=== PATIENT | female | born 1930 | race Caucasian/White ===

== ENCOUNTER 2016-12-28 06:09 | Emergency (ER) | payer MEDICARE, MEDICAID ==
--- NOTE | 2016-12-28 06:58 | EDM.PDOC ---
ED HPI GENERAL MEDICAL PROBLEM - General Chief Complaint: Gastrointestinal Problem Stated Complaint: BLOODY STOOLS Time Seen by Provider: 12/28/16 06:48 Source of Information: Reports: Patient, Old Records History Limitations: Reports: No Limitations - History of Present Illness INITIAL COMMENTS - FREE TEXT/NARRATIVE: Adry comes to [facility] with a hx of painless BRB stools over the past 24 hrs. Stooling has been in small amounts, both with and without clots, She was seen by Dr Bejarano yesterday am, and prescribed SMX/TMP and Metronidazole for presumptive diverticulitis, and advised to hold Coumadin. BRB stooling has persisted throughout the interval, and she was advised by phone last pm to come in if sxs persisted. Upon arrival, she is alert, cooperative, and not dizzy or lt headiness. She is on Warfarin for chronic AF. - Related Data Allergies Allergy/AdvReac Type Severity Reaction Status Date / Time gabapentin [From Neurontin] Allergy Cannot Verified 12/28/16 06:23 Remember avalox Allergy Cannot Uncoded 12/28/16 06:23 Remember Home Meds: Home Meds Acetaminophen [Tylenol Arthritis] 1,300 mg PO Q8H PRN 05/04/13 [History] Albuterol Sulfate [Albuterol Sulfate HFA] 2 puff INH Q4H PRN 05/04/13 [History] Calcium Carbonate/Vitamin D3 [Calcium 600 + Vit D 400] 1 tab PO BID 05/04/13 [ History] Folic Acid 1 mg PO DAILY 05/04/13 [History] Losartan/Hydrochlorothiazide [Hyzaar 100-25] 1 tab PO DAILY 05/04/13 [History] Multivitamin [Daily Multiple Vitamin] 1 tab PO DAILY 05/04/13 [History] predniSONE [Prednisone] 5 mg PO DAILY 05/04/13 [History] Carvedilol 6.25 mg PO BID 01/21/15 [History] Albuterol [IMW: Albuterol HFA] 1 puff IH ASDIRECTED #8 gm 03/03/16 [Rx] Mirtazapine [Remeron] 15 mg PO BEDTIME 03/03/16 [History] busPIRone [Buspar] 15 mg PO DAILY 03/03/16 [History] Sulfamethoxazole/Trimethoprim [Sulfamethoxazole-Tmp Ds Tablet] 1 tab PO BID 12/04 [History] metroNIDAZOLE [Metronidazole] 250 mg PO TID 12/28/16 [History] Past Medical History HEENT History: Reports: Impaired Vision Cardiovascular History: Reports: Afib, Hypertension Other Cardiovascular History: BROKEN HEART SYNDROME, ATRIAL FIB Respiratory History: Reports: Pneumonia, Recurrent Gastrointestinal History: Reports: Cholelithiasis, Diverticulosis [employer]TAIN[employer]PER[employer] History: Reports: Other OB/BYN History: HYSTERECTOMY Psychiatric History: Reports: Depression - Past Surgical History GI Surgical History: Reports: Cholecystectomy Social & Family History - Family History Family Medical History: Unobtainable - Tobacco Use Smoking Status *Q: Never Smoker - Caffeine Use Caffeine Use: Reports: Coffee, Tea - Alcohol Use Days Per Week of Alcohol Use: 1 Number of Drinks Per Day: 1 Total Drinks Per Week: 1 - Recreational Drug Use Recreational Drug Use: No - Living Situation & Occupation Living situation: Reports: , Alone Occupation: Retired ED ROS GENERAL - Review of Systems Review Of Systems: See Below Constitutional: Reports: Malaise HEENT: Reports: No Symptoms Respiratory: Reports: No Symptoms Cardiovascular: Reports: No Symptoms Endocrine: Reports: No Symptoms GI/Abdominal: Reports: Bloody Stool, Hematochezia : Reports: No Symptoms Musculoskeletal: Reports: No Symptoms Skin: Reports: No Symptoms Neurological: Reports: No Symptoms Psychiatric: Reports: No Symptoms Hematologic/Lymphatic: Reports: Easy Bleeding Immunologic: Reports: No Symptoms ED EXAM, GI/ABD - Physical Exam Exam: See Below Exam Limited By: No Limitations General Appearance: Alert, WD/WN, No Apparent Distress Eyes: Bilateral: Normal Appearance Ears: Normal External Exam Nose: Normal Inspection Throat/Mouth: Normal Inspection, Normal Oropharynx Head: Normocephalic Neck: Normal Inspection, Supple Respiratory/Chest: Lungs Clear, Normal Breath Sounds Cardiovascular: No Edema, Irregularly Irregular GI/Abdominal Exam: Normal Bowel Sounds, Soft, No Organomegaly, No Distention, No Mass, Tender (mild tenderness LLQ) (Female) Exam: Deferred Rectal (Female) Exam: Bloody Stool Back Exam: Normal Inspection Extremities: Normal Inspection Neurological: Alert, Oriented, CN II-XII Intact, Normal Gait, No Motor/Sensory Deficits Psychiatric: Normal Affect, Anxious Skin Exam: Warm, Dry Lymphatic: No Adenopathy Course - Vital Signs Text/Narrative:: Labs noted Hgb 9.5 gm, WBC 10,900, plts 334,000; PT 18.1/INR 1.77; she was administered Vit K 2.5 mg po before discharge. Last Recorded V/S: Last Vital Signs Temp 36.3 C 12/28/16 06:10 Pulse 61 12/28/16 06:10 Resp 18 12/28/16 07:22 BP 103/71 12/28/16 07:22 Pulse Ox 91 L 12/28/16 07:22 - Orders/Labs/Meds Orders: Active Orders 24 hr Category Date Time Status Phytonadione [AquaMephyton] Med 12/28/16 07:47 Once 2.5 mg PO ONETIME ONE Labs: Laboratory Tests 12/28/16 12/28/16 Range/Units 06:38 06:38 WBC 10.9 (4.5-12.0) X10-3/uL RBC 3.33 (3.23-5.20) x10(6)uL Hgb 9.5 L (11.5-15.5) g/dL Hct 29.1 L (30.0-51.3) % MCV 87.3 (80-96) fL MCH 28.5 (27.7-33.6) pg MCHC 32.6 (32.2-35.4) g/dL RDW 16.5 H (11.5-15.5) % Plt Count 334 (125-369) X10(3)uL MPV 8.1 (7.4-10.4) fL Neut % (Auto) 69.8 (46-82) % Lymph % (Auto) 21.5 (13-37) % [place] % (Auto) 7.5 (4-12) % Eos % (Auto) 1 (1.0-5.0) % Baso % (Auto) 0 (0-2) % Neut # (Auto) 7.7 (1.6-8.3) # Lymph # (Auto) 2.3 (0.6-5.0) # [place] # (Auto) 0.8 (0.0-1.3) # Eos # (Auto) 0.1 (0.0-0.8) # Baso # (Auto) 0.0 (0.0-0.2) # PT 18.1 H (8.7-11.1) INR 1.77 H (0.89-1.13) Departure - Departure Time of Disposition: 07:51 Disposition: Home, Self-Care 01 Condition: Fair Clinical Impression: Diverticulitis, Bleeding - Discharge Information Referrals: Balaji Carpenter MD [Primary Care Provider] - Forms: ED Department Discharge - Problem List & Annotations (1) Rectal bleed SNOMED Code(s): 27792848 Code(s): K62.5 - HEMORRHAGE OF ANUS AND RECTUM Status: Acute Current Visit: No Annotation/Comment:: I empirically administered Vit K 2.5 mg po before discharge. She will remain off Warfarin, ASA and any NSAIDs. She will call Dr Bejarano nurse today with results of ED visit and coordinate management for the weekend. Prognosis is good. (2) Diverticulitis SNOMED Code(s): 938816283 Code(s): K57.92 - DVTRCLI OF INTEST, PART UNSP, W/O PERF OR ABSCESS W/O BLEED Status: Acute Current Visit: Yes Annotation/Comment:: Continue SMX/ TMP and Metronidazole as directed. - Problem List Review Problem List Initiated/Reviewed/Updated: Yes - My Orders Last 24 Hours: My Active Orders 12/28/16 07:47 Phytonadione [AquaMephyton] 2.5 mg PO ONETIME ONE - Assessment/Plan Last 24 Hours: My Active Orders 12/28/16 07:47 Phytonadione [AquaMephyton] 2.5 mg PO ONETIME ONE Plan: Follow up with Dr. Bejarano.
[2016-12-28 08:45] VITALS: BP 125/59
== END 2016-12-28 08:13 | disposition home or self-care (01) ==
LOC: FB.ED 06:09
DX: K57.92 Diverticulitis of intestine, part unspecified, without perforation or abscess without bleeding (principal); K62.5 Hemorrhage of anus and rectum; I48.91 Unspecified atrial fibrillation; I10 Essential (primary) hypertension; Z79.899 Other long term (current) drug therapy; Z88.8 Allergy status to other drugs, medicaments and biological substances
CPT/HCPCS: 36415; 85025; 85610; 99283; J3430; 99284

== ENCOUNTER 2016-12-28 13:49 | Observation (INO) | payer MEDICARE, MEDICAID ==
[2016-12-28] MEDS ORDERED: Sodium Chloride 0.9% 10 ML Syringe FLUSH PRN (13:51)
[2016-12-28] MEDS ORDERED: Sodium Chloride 0.9% 250 ML IV SCH (14:00)
[2016-12-28] MEDS: Lactated Ringers 1,000 ML IV SCH (19:41)
[2016-12-28] MEDS: METRONIDAZOLE 250 MG PO SCH (21:57)
[2016-12-28] MEDS: Carvedilol 6.25 MG Tab *PTOM PO SCH (21:57)
[2016-12-28] MEDS: SULFAMETHOXAZOLE PO SCH (21:57)
[2016-12-28] MEDS: TRIMETHOPRIM PO SCH (21:57)
[2016-12-29] MEDS ORDERED: Sodium Chloride 0.9% 250 ML IV SCH (09:15)
--- NOTE | 2016-12-29 09:18 | PCM.PN ---
- General Info Date of Service: 12/29/16 Functional Status: Reports: Pain Controlled, Tolerating Diet - Review of Systems General: Reports: Weakness Pulmonary: Reports: No Symptoms Cardiovascular: Reports: No Symptoms Gastrointestinal: Reports: Abdominal Pain (improved in LLQ), Hematochezia (only 2 clots last pm, none since) - Patient Data Vitals - Most Recent: Last Vital Signs Temp 97.3 F 12/28/16 18:35 Pulse 82 12/28/16 21:57 Resp 16 12/28/16 21:56 BP 146/67 H 12/28/16 21:57 Pulse Ox 98 12/28/16 21:56 Weight - Most Recent: 93.695 kg I&O - Last 24 Hours: Intake & Output 12/28/16 12/29/16 12/29/16 22:59 06:59 14:59 Intake Total 454 558 Output Total 425 Balance 454 133 Lab Results Last 24 Hours: Laboratory Results - last 24 hr 12/28/16 12/28/16 12/28/16 Range/Units 15:20 19:14 19:14 WBC (4.5-12.0) X10-3/uL RBC (3.23-5.20) x10(6)uL Hgb 8.6 L (11.5-15.5) g/dL Hct (30.0-51.3) % MCV (80-96) fL MCH (27.7-33.6) pg MCHC (32.2-35.4) g/dL RDW (11.5-15.5) % Plt Count (125-369) X10(3)uL MPV (7.4-10.4) fL Neut % (Auto) (46-82) % Lymph % (Auto) (13-37) % [place] % (Auto) (4-12) % Eos % (Auto) (1.0-5.0) % Baso % (Auto) (0-2) % Neut # (Auto) (1.6-8.3) # Lymph # (Auto) (0.6-5.0) # [place] # (Auto) (0.0-1.3) # Eos # (Auto) (0.0-0.8) # Baso # (Auto) (0.0-0.2) # PT 15.0 H (8.7-11.1) INR 1.48 H (0.89-1.13) Blood Type A POSITIVE Crossmatch See Detail 12/29/16 12/29/16 Range/Units 06:35 06:35 WBC 7.9 (4.5-12.0) X10-3/uL RBC 2.63 L (3.23-5.20) x10(6)uL Hgb 7.6 L (11.5-15.5) g/dL Hct 23.1 L (30.0-51.3) % MCV 87.8 (80-96) fL MCH 28.8 (27.7-33.6) pg MCHC 32.8 (32.2-35.4) g/dL RDW 16.4 H (11.5-15.5) % Plt Count 277 (125-369) X10(3)uL MPV 8.2 (7.4-10.4) fL Neut % (Auto) 63.3 (46-82) % Lymph % (Auto) 25.4 (13-37) % [place] % (Auto) 9.4 (4-12) % Eos % (Auto) 2 (1.0-5.0) % Baso % (Auto) 0 (0-2) % Neut # (Auto) 5.1 (1.6-8.3) # Lymph # (Auto) 2.0 (0.6-5.0) # [place] # (Auto) 0.7 (0.0-1.3) # Eos # (Auto) 0.1 (0.0-0.8) # Baso # (Auto) 0.0 (0.0-0.2) # PT 12.8 H (8.7-11.1) INR 1.26 H (0.89-1.13) Blood Type Crossmatch Med Orders - Current: Current Medications Carvedilol (Coreg) 6.25 mg PO BID [facility] Last Admin: 12/28/16 21:57 Dose: 6.25 mg Lactated Ringer's (Ringers, Lactated) 1,000 mls @ 50 mls/hr IV ASDIRECTED [facility] Last Admin: 12/28/16 19:41 Dose: 50 mls/hr Sodium Chloride (Normal Saline) 250 mls @ 100 mls/hr IV ASDIRECTED [facility] Last Admin: 12/28/16 16:46 Dose: 100 mls/hr Sodium Chloride (Normal Saline) 250 mls @ 50 mls/hr IV ASDIRECTED [facility] Metronidazole (Metronidazole) 250 mg PO TID [facility] Last Admin: 12/28/16 21:57 Dose: 250 mg Sodium Chloride (Saline Flush) 10 ml FLUSH ASDIRECTED PRN PRN Reason: Keep Vein Open Last Admin: 12/28/16 16:45 Dose: 10 ml Trimethoprim/Sulfamethoxazole (Septra Ds) 1 tab PO BID [facility] Last Admin: 12/28/16 21:57 Dose: 1 tab - Exam General: Alert, Oriented Lungs: Clear to Auscultation GI/Abdominal Exam: Soft, Tender (mild in LLQ) - Problem List Review Problem List Initiated/Reviewed/Updated: Yes - My Orders Last 24 Hours: My Active Orders 12/28/16 13:51 Patient Status [ADT] Routine Sodium Chloride 0.9% [Saline Flush] 10 ml FLUSH ASDIRECTED PRN Peripheral IV Insertion Adult [OM.PC] Routine Transfuse Fresh Frozen Plasma [COMM] Routine 12/28/16 14:00 Lactated Ringers [Ringers, Lactated] 1,000 ml IV ASDIRECTED Sodium Chloride 0.9% [Normal Saline] 250 ml IV ASDIRECTED 12/28/16 15:20 FRESH FROZEN PLASMA [BBK] Routine PATIENT RETYPE [BBK] Routine TYPE AND SCREEN [BBK] Routine 12/28/16 21:00 Carvedilol [Coreg] 6.25 mg PO BID Sulfamethoxazole/Trimethoprim [Septra DS] 1 tab PO BID metroNIDAZOLE 250 mg PO TID 12/29/16 09:11 RED BLOOD CELLS LP [BBK] Routine Transfuse PRBC [Transfuse Red Blood Cells] [COMM] Routine 12/29/16 09:15 Sodium Chloride 0.9% [Normal Saline] 250 ml IV ASDIRECTED 12/29/16 Lunch Full Liquid Diet [DIET] 12/30/16 07:00 BASIC METABOLIC PANEL,BMP [CHEM] Routine CBC WITH AUTO DIFF [HEME] Routine INR,PT,PROTHROMBIN TIME [COAG] Routine - Assessment Assessment:: Lower GI Bleed stopped Diverticulitis improviong Anemia with weakness - Plan Plan:: Will transfuse 2 U PRBC's Recheck labs in am Cont antibiotics
[2016-12-29] MEDS: Carvedilol 6.25 MG Tab *PTOM PO SCH ×2 (09:22→21:44)
[2016-12-29] MEDS: TRIMETHOPRIM PO SCH ×2 (09:23→21:42)
[2016-12-29] MEDS: METRONIDAZOLE 250 MG PO SCH ×3 (09:23→21:43)
[2016-12-29] MEDS: SULFAMETHOXAZOLE PO SCH ×2 (09:23→21:42)
[2016-12-29] MEDS: Lactated Ringers 1,000 ML IV SCH (21:40)
[2016-12-30] MEDS: Carvedilol 6.25 MG Tab *PTOM PO SCH (09:13)
[2016-12-30] MEDS: TRIMETHOPRIM PO SCH (09:15)
[2016-12-30] MEDS: METRONIDAZOLE 250 MG PO SCH (09:15)
[2016-12-30] MEDS: SULFAMETHOXAZOLE PO SCH (09:15)
[2016-12-30 09:16] VITALS: BP 107/56
--- NOTE | 2016-12-30 10:17 | PCM.PN ---
- General Info Date of Service: 12/30/16 Functional Status: Reports: Tolerating Diet, Ambulating - Review of Systems General: Reports: No Symptoms Pulmonary: Reports: No Symptoms Cardiovascular: Reports: No Symptoms Gastrointestinal: Reports: Abdominal Pain (inprovedi LLQ), Hematochezia (only small maroon streaking on toilet paper during the night) - Patient Data Vitals - Most Recent: Last Vital Signs Temp 97.8 F 12/30/16 03:12 Pulse 75 12/30/16 09:13 Resp 18 12/30/16 03:12 BP 107/56 L 12/30/16 09:13 Pulse Ox 96 12/30/16 03:12 Weight - Most Recent: 93.497 kg I&O - Last 24 Hours: Intake & Output 12/29/16 12/30/16 12/30/16 22:59 06:59 14:59 Intake Total 731 800 Output Total 850 800 Balance -119 0 Lab Results Last 24 Hours: Laboratory Results - last 24 hr 12/28/16 12/30/16 12/30/16 Range/Units 15:20 06:35 06:35 WBC 9.4 (4.5-12.0) X10-3/uL RBC 3.36 (3.23-5.20) x10(6)uL Hgb 9.8 L (11.5-15.5) g/dL Hct 29.3 L (30.0-51.3) % MCV 87.2 (80-96) fL MCH 29.2 (27.7-33.6) pg MCHC 33.5 (32.2-35.4) g/dL RDW 15.5 (11.5-15.5) % Plt Count 219 (125-369) X10(3)uL MPV 8.7 (7.4-10.4) fL Neut % (Auto) 68.1 (46-82) % Lymph % (Auto) 20.6 (13-37) % [place] % (Auto) 9.9 (4-12) % Eos % (Auto) 1 (1.0-5.0) % Baso % (Auto) 1 (0-2) % Neut # (Auto) 6.4 (1.6-8.3) # Lymph # (Auto) 1.9 (0.6-5.0) # [place] # (Auto) 0.9 (0.0-1.3) # Eos # (Auto) 0.1 (0.0-0.8) # Baso # (Auto) 0.1 (0.0-0.2) # PT 12.0 H (8.7-11.1) INR 1.19 H (0.89-1.13) Sodium (135-145) mmol/L Potassium (3.5-5.3) mmol/L Chloride (100-110) mmol/L Carbon Dioxide (23-29) mmol/L BUN (8-23) mg/dL Creatinine (0.6-1.3) mg/dL Est Cr Clr Drug Dosing mL/min Estimated GFR (MDRD) (>60) BUN/Creatinine Ratio (9-20) Glucose (80-116) mg/dL Calcium (8.6-10.2) mg/dL Blood Type A POSITIVE Gel Antibody Screen Negative Crossmatch See Detail 12/30/16 Range/Units 06:35 WBC (4.5-12.0) X10-3/uL RBC (3.23-5.20) x10(6)uL Hgb (11.5-15.5) g/dL Hct (30.0-51.3) % MCV (80-96) fL MCH (27.7-33.6) pg MCHC (32.2-35.4) g/dL RDW (11.5-15.5) % Plt Count (125-369) X10(3)uL MPV (7.4-10.4) fL Neut % (Auto) (46-82) % Lymph % (Auto) (13-37) % [place] % (Auto) (4-12) % Eos % (Auto) (1.0-5.0) % Baso % (Auto) (0-2) % Neut # (Auto) (1.6-8.3) # Lymph # (Auto) (0.6-5.0) # [place] # (Auto) (0.0-1.3) # Eos # (Auto) (0.0-0.8) # Baso # (Auto) (0.0-0.2) # PT (8.7-11.1) INR (0.89-1.13) Sodium 136 (135-145) mmol/L Potassium 3.4 L (3.5-5.3) mmol/L Chloride 106 (100-110) mmol/L Carbon Dioxide 23 (23-29) mmol/L BUN 13 D (8-23) mg/dL Creatinine 1.3 (0.6-1.3) mg/dL Est Cr Clr Drug Dosing 28.47 mL/min Estimated GFR (MDRD) 39 L (>60) BUN/Creatinine Ratio 10.0 (9-20) Glucose 83 D (80-116) mg/dL Calcium 8.1 L (8.6-10.2) mg/dL Blood Type Gel Antibody Screen Crossmatch Med Orders - Current: Current Medications Carvedilol (Coreg) 6.25 mg PO BID COUNT [facility]CLUDES [facility] Last Admin: 12/30/16 09:13 Dose: 6.25 mg Lactated Ringer's (Ringers, Lactated) 1,000 mls @ 50 mls/hr IV ASDIRECTED COUNT INCLUDES [facility] Last Admin: 12/29/16 21:40 Dose: 50 mls/hr Metronidazole (Metronidazole) 250 mg PO TID COUNT [facility]CLUDES [facility] Last Admin: 12/30/16 09:15 Dose: 250 mg Sodium Chloride (Saline Flush) 10 ml FLUSH ASDIRECTED PRN PRN Reason: Keep Vein Open Last Admin: 12/28/16 16:45 Dose: 10 ml Trimethoprim/Sulfamethoxazole (Septra Ds) 1 tab PO BID COUNT [facility]CLUD[facility] Last Admin: 12/30/16 09:15 Dose: 1 tab Discontinued Medications Sodium Chloride (Normal Saline) 250 mls @ 100 mls/hr IV ASDIRECTED COUNT INCLUDES [facility] Last Admin: 12/28/16 16:46 Dose: 100 mls/hr Sodium Chloride (Normal Saline) 250 mls @ 50 mls/hr IV ASDIRECTED COUNT INCLUDES THE [facility] - Exam General: Alert, Oriented GI/Abdominal Exam: Soft, Tender (very minimal in LLQ) - Problem List Review Problem List Initiated/Reviewed/Updated: Yes - My Orders Last 24 Hours: My Active Orders 12/29/16 Lunch Full Liquid Diet [DIET] - Assessment Assessment:: Lower GI Bleed stopped Diverticulitis improviong Anemia with weakness - Plan Plan:: Will transfuse 2 U PRBC's Recheck labs in am Cont antibiotics Will discharge to home
--- NOTE | 2016-12-30 10:22 | PCM.DCSUM1 ---
Discharge Summary - Hospital Course HPI Initial Comments: Admitted 2 days ago with lower GI bleed and diverticulitis - Discharge Data Discharge Date: 12/30/16 Discharge Disposition: Home, Self-Care 01 Condition: Good - Patient Summary/Data Hospital Course: Hgb continued to drop after 1 U FFP was given to reverse Coumadin, so 2 U PRBc' s was given yesterday. Pt is feeling better today with no evidence of ongoing bleeding. LLQ abdominal pain cont to improve - Patient Instructions Diet: Usual Diet as Tolerated Activity: As Tolerated - Discharge Plan Home Medications: Home Meds Acetaminophen [Tylenol Arthritis] 1,300 mg PO Q8H PRN 05/04/13 [History] Calcium Carbonate/Vitamin D3 [Calcium 600 + Vit D 400] 1 tab PO BID 05/04/13 [ History] Losartan/Hydrochlorothiazide [Hyzaar 100-25] 1 tab PO DAILY 05/04/13 [History] Multivitamin [Daily Multiple Vitamin] 1 tab PO DAILY 05/04/13 [History] predniSONE [Prednisone] 5 mg PO DAILY 05/04/13 [History] Carvedilol 6.25 mg PO BID 01/21/15 [History] Mirtazapine [Remeron] 15 mg PO BEDTIME 03/03/16 [History] busPIRone [Buspar] 15 mg PO DAILY 03/03/16 [History] Sulfamethoxazole/Trimethoprim [Sulfamethoxazole-Tmp Ds Tablet] 1 tab PO BID 12/04 [History] metroNIDAZOLE [Metronidazole] 250 mg PO TID 12/28/16 [History] Cetirizine [ZyrTEC] 10 mg PO DAILY 12/29/16 [History] Cholecalciferol (Vitamin D3) [Vitamin D3] 1,000 unit PO DAILY 12/29/16 [History] Fluticasone/Vilanterol [Breo Ellipta 200-25 Mcg INH] 1 inhalation IH DAILY 12/29 [History] Folic Acid 0.8 mg PO DAILY 12/29/16 [History] Carvedilol [Coreg] 6.25 mg PO BID tablet 12/30/16 [Rx] Sulfamethoxazole/Trimethoprim [IJD: Sulfamethoxazole/Trimethoprim DS] 1 tab PO BID tablet 12/30/16 [Rx] metroNIDAZOLE 250 mg PO TID tablet 12/30/16 [Rx] Referrals: Mir Bejarano MD [Physician] - (f/u in clinic end of week. Also make appt with Dr Carpenter this week) - Discharge Summary/Plan Comment DC Time >30 min.: No - Patient Data Vitals - Most Recent: Last Vital Signs Temp 97.8 F 12/30/16 03:12 Pulse 75 12/30/16 09:13 Resp 18 12/30/16 03:12 BP 107/56 L 12/30/16 09:13 Pulse Ox 96 12/30/16 03:12 Weight - Most Recent: 93.497 kg I&O - Last 24 hours: Intake & Output 12/29/16 12/30/16 12/30/16 22:59 06:59 14:59 Intake Total 731 800 Output Total 850 800 Balance -119 0 Lab Results - Last 24 hrs: Laboratory Results - last 24 hr 12/28/16 12/30/16 12/30/16 Range/Units 15:20 06:35 06:35 WBC 9.4 (4.5-12.0) X10-3/uL RBC 3.36 (3.23-5.20) x10(6)uL Hgb 9.8 L (11.5-15.5) g/dL Hct 29.3 L (30.0-51.3) % MCV 87.2 (80-96) fL MCH 29.2 (27.7-33.6) pg MCHC 33.5 (32.2-35.4) g/dL RDW 15.5 (11.5-15.5) % Plt Count 219 (125-369) X10(3)uL MPV 8.7 (7.4-10.4) fL Neut % (Auto) 68.1 (46-82) % Lymph % (Auto) 20.6 (13-37) % [place] % (Auto) 9.9 (4-12) % Eos % (Auto) 1 (1.0-5.0) % Baso % (Auto) 1 (0-2) % Neut # (Auto) 6.4 (1.6-8.3) # Lymph # (Auto) 1.9 (0.6-5.0) # [place] # (Auto) 0.9 (0.0-1.3) # Eos # (Auto) 0.1 (0.0-0.8) # Baso # (Auto) 0.1 (0.0-0.2) # PT 12.0 H (8.7-11.1) INR 1.19 H (0.89-1.13) Sodium (135-145) mmol/L Potassium (3.5-5.3) mmol/L Chloride (100-110) mmol/L Carbon Dioxide (23-29) mmol/L BUN (8-23) mg/dL Creatinine (0.6-1.3) mg/dL Est Cr Clr Drug Dosing mL/min Estimated GFR (MDRD) (>60) BUN/Creatinine Ratio (9-20) Glucose (80-116) mg/dL Calcium (8.6-10.2) mg/dL Blood Type A POSITIVE Gel Antibody Screen Negative Crossmatch See Detail 12/30/16 Range/Units 06:35 WBC (4.5-12.0) X10-3/uL RBC (3.23-5.20) x10(6)uL Hgb (11.5-15.5) g/dL Hct (30.0-51.3) % MCV (80-96) fL MCH (27.7-33.6) pg MCHC (32.2-35.4) g/dL RDW (11.5-15.5) % Plt Count (125-369) X10(3)uL MPV (7.4-10.4) fL Neut % (Auto) (46-82) % Lymph % (Auto) (13-37) % [place] % (Auto) (4-12) % Eos % (Auto) (1.0-5.0) % Baso % (Auto) (0-2) % Neut # (Auto) (1.6-8.3) # Lymph # (Auto) (0.6-5.0) # [place] # (Auto) (0.0-1.3) # Eos # (Auto) (0.0-0.8) # Baso # (Auto) (0.0-0.2) # PT (8.7-11.1) INR (0.89-1.13) Sodium 136 (135-145) mmol/L Potassium 3.4 L (3.5-5.3) mmol/L Chloride 106 (100-110) mmol/L Carbon Dioxide 23 (23-29) mmol/L BUN 13 D (8-23) mg/dL Creatinine 1.3 (0.6-1.3) mg/dL Est Cr Clr Drug Dosing 28.47 mL/min Estimated GFR (MDRD) 39 L (>60) BUN/Creatinine Ratio 10.0 (9-20) Glucose 83 D (80-116) mg/dL Calcium 8.1 L (8.6-10.2) mg/dL Blood Type Gel Antibody Screen Crossmatch Med Orders - Current: Current Medications Carvedilol (Coreg) 6.25 mg PO BID [facility] Last Admin: 12/30/16 09:13 Dose: 6.25 mg Lactated Ringer's (Ringers, Lactated) 1,000 mls @ 50 mls/hr IV ASDIRECTED [facility] Last Admin: 12/29/16 21:40 Dose: 50 mls/hr Metronidazole (Metronidazole) 250 mg PO TID [facility] Last Admin: 12/30/16 09:15 Dose: 250 mg Sodium Chloride (Saline Flush) 10 ml FLUSH ASDIRECTED PRN PRN Reason: Keep Vein Open Last Admin: 12/28/16 16:45 Dose: 10 ml Trimethoprim/Sulfamethoxazole (Septra Ds) 1 tab PO BID [facility] Last Admin: 12/30/16 09:15 Dose: 1 tab Discontinued Medications Sodium Chloride (Normal Saline) 250 mls @ 100 mls/hr IV ASDIRECTED [facility] Last Admin: 12/28/16 16:46 Dose: 100 mls/hr Sodium Chloride (Normal Saline) 250 mls @ 50 mls/hr IV ASDIRECTED [facility] *Q Meaningful Use (DIS) - VTE *Q VTE Criteria *Q: - Stroke *Q Stroke Criteria *Q: - AMI *Q AMI Criteria *Q:
== END 2016-12-30 10:45 | disposition home or self-care (01) ==
LOC: FB.MS 14:56
PROVIDERS: ADMIT Surgery; ATTEND Surgery
DX: K92.2 Gastrointestinal hemorrhage, unspecified (principal); K57.92 Diverticulitis of intestine, part unspecified, without perforation or abscess without bleeding; I48.2 Chronic atrial fibrillation; I10 Essential (primary) hypertension; E78.00 Pure hypercholesterolemia, unspecified; D64.9 Anemia, unspecified; R53.1 Weakness; Z90.49 Acquired absence of other specified parts of digestive tract; Z90.710 Acquired absence of both cervix and uterus; Z79.01 Long term (current) use of anticoagulants; Z88.8 Allergy status to other drugs, medicaments and biological substances; K62.5 Hemorrhage of anus and rectum; I48.91 Unspecified atrial fibrillation; Z79.899 Other long term (current) drug therapy
CPT/HCPCS: 36415; 36430; 80048; 85018; 85025; 85610; 86850; 86900; 86901; 86920; 86922; 96360; 96361; 99283; 99284; A9270; G0378; J3430; J7050; J7120; P9016; P9017

== ENCOUNTER 2017-10-12 10:15 | Inpatient (IN) | payer MEDICARE, MEDICAID ==
[2017-10-12] MEDS ORDERED: Ketorolac 30 MG/ML SDV IM ONE (10:29)
--- NOTE | 2017-10-12 11:08 | EDM.PDOC ---
ED HPI GENERAL MEDICAL PROBLEM - General Chief Complaint: Back Pain or Injury Stated Complaint: DIZZINESS,BACK PAIN Time Seen by Provider: 10/12/17 10:15 Source of Information: Reports: Patient, EMS, Family History Limitations: Reports: Physical Impairment - History of Present Illness INITIAL COMMENTS - FREE TEXT/NARRATIVE: 87 years old w f with a h/o a fib, on ASA, came to the ed by EMS due to low back pain. She was reaching our for a paper while bending foreword, when she suddenly felt a severe back pain. She was seen at the [facility] home yesterday when a X Ray showed a compression fx of her lower back. She was sent home. However, her back pain got worse, which prompted her to call 911. She had some dizziness at home as well. As she arrived here in the ed, her main complaint was low back pain, not to be able to take care of herself at her home. Any movement her back hurts extremely bad. No N/V/D no SOB or dizziness at this time. BP 141/76 RR 16 Pulse ox 96% on RA pulse 73 (irr irr) Temp 36.8. Onset Date: 10/11/17 Onset Time: 08:00 Duration: Day(s):, Getting Worse Location: Reports: Back Quality: Reports: Ache, Burning, Dull, Pressure Severity: Moderate Improves with: Reports: Rest Worsens with: Reports: Movement Context: Reports: Trauma Treatments HOME CARE SPECIALIST: Reports: Aspirin back Pain Score (Numeric/FACES): 8 - Related Data Allergies Allergy/AdvReac Type Severity Reaction Status Date / Time gabapentin [From Neurontin] Allergy Cannot Verified 10/12/17 10:58 Remember avalox Allergy Cannot Uncoded 10/12/17 13:02 Remember Home Meds: Home Meds Acetaminophen [Tylenol Arthritis] 1,300 mg PO Q8H PRN 05/04/13 [History] Calcium Carbonate/Vitamin D3 [Calcium 600 + Vit D 400] 1 tab PO BID 05/04/13 [ History] Multivitamin [Daily Multiple Vitamin] 1 tab PO DAILY 05/04/13 [History] predniSONE [Prednisone] 7 mg PO DAILY 05/04/13 [History] Carvedilol 6.25 mg PO BID 01/21/15 [History] Mirtazapine [Remeron] 15 mg PO BEDTIME 03/03/16 [History] busPIRone [Buspar] 15 mg PO DAILY 03/03/16 [History] Cholecalciferol (Vitamin D3) [Vitamin D3] 1,000 unit PO DAILY 12/29/16 [History] Albuterol [Ventolin HFA] 2 puff INH TID PRN 10/12/17 [History] Aspirin 81 mg PO DAILY 10/12/17 [History] Carboxymethylcellulos/Glycerin [Refresh Optive] 2 drop EYEBOTH Q1H PRN 10/12/17 [History] Cetirizine [ZyrTEC] 10 mg PO DAILY 10/12/17 [History] Cyclobenzaprine [Flexeril] 5 mg PO BID PRN 10/12/17 [History] Fluticasone/Vilanterol [Breo Ellipta 200-25 Mcg INH] 1 inh INH DAILY 10/12/17 [ History] Furosemide 20 mg PO DAILY 10/12/17 [History] Hydrocodone/Acetaminophen [Hydrocodon-Acetaminophen 5-325] 1 tab PO Q4H PRN [History] Hydroxychloroquine Sulfate [Plaquenil] 200 mg PO BID 10/12/17 [History] Losartan/Hydrochlorothiazide [Losartan-HCTZ 100-25 MG] 1 tab PO DAILY 10/12/17 [ History] Pome[place]-3S/DHA/Epa/Fish Oil [Pomerene-3 Fish Oil 1,000 mg Sfgl] 1 cap PO BID [History] Omeprazole 20 mg PO DAILY 10/12/17 [History] Sodium Chloride [[place]] 0.1 ml LOLA Q4H PRN 10/12/17 [History] Past Medical History HEENT History: Reports: Impaired Vision Cardiovascular History: Reports: Afib, Hypertension Other Cardiovascular History: BROKEN HEART SYNDROME, ATRIAL FIB Respiratory History: Reports: Pneumonia, Recurrent Other Respiratory History: uses inhaler at hs Gastrointestinal History: Reports: Cholelithiasis, Diverticulosis Other Genitourinary History: the dr says my kidneys are not working very well 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 Musculoskeletal History: Reports: Arthritis, RA, Other (See Below) Other Musculoskeletal History: both shoulders have diminished movement pt thinks she has torn rotator cuffs uses a walker Psychiatric History: Reports: Depression - Infectious Disease History Infectious Disease History: Reports: Shingles Other Infectious Disease History: about 2 weeks ago had a bout of shingles had the shingles vaccine in the past - Past Surgical History GI Surgical History: Reports: Cholecystectomy Social & Family History - Family History Family Medical History: Unobtainable - Caffeine Use Caffeine Use: Reports: Coffee - Living Situation & Occupation Living situation: Reports: , Alone Occupation: Retired ED ROS GENERAL - Review of Systems Review Of Systems: See Below Constitutional: Reports: No Symptoms HEENT: Reports: No Symptoms Respiratory: Reports: No Symptoms Cardiovascular: Reports: Other (h/o a fib, on ASA) Endocrine: Reports: No Symptoms GI/Abdominal: Reports: No Symptoms : Reports: No Symptoms Musculoskeletal: Reports: Back Pain Skin: Reports: No Symptoms Neurological: Reports: No Symptoms Psychiatric: Reports: No Symptoms Hematologic/Lymphatic: Reports: No Symptoms Immunologic: Reports: No Symptoms ED EXAM,LOWER BACK PAIN/INJURY - Physical Exam Exam: See Below Exam Limited By: Physical Impairment General Appearance: Alert, Mild Distress, Obese Eye Exam: Bilateral Eye: Normal Inspection Ears: Normal External Exam Nose: Normal Inspection Throat/Mouth: Normal Lips, Normal Oropharynx, Normal Voice, No Airway Compromise Head: Atraumatic, Normocephalic Neck: Normal Inspection, Supple, Non-Tender, Full Range of Motion Respiratory/Chest: No Respiratory Distress, Lungs Clear, Normal Breath Sounds, No Accessory Muscle Use, Chest Non-Tender Cardiovascular: Normal Peripheral Pulses, No Edema, No Gallop, No JVD, Irregularly Irregular GI/Abdominal: Normal Bowel Sounds, Soft, Non-Tender, No Organomegaly, No Distention, No Abnormal Bruit, No Mass, Pelvis Stable (Female) Exam: Deferred Rectal (Female) Exam: Deferred Back Exam: Decreased Range of Motion, Muscle Spasm, Paraspinal Tenderness, Vertebral Tenderness Extremities: Normal Inspection Neurological: Alert, Normal Mood/Affect, Normal Dorsiflexion, CN II-XII Intact, Normal Plantar Flexion, Abnormal Gait (deu tro back pain) Psychiatric: Normal Affect, Normal Mood Skin Exam: Warm, Dry, Intact, Normal Color, No Rash Lymphatic: No Adenopathy EKG INTERPRETATION EKG Date: 10/12/17 Time: 11:10 Rhythm: A-Flutter Rate (Beats/Min): 70 [place]: LAD-Left [place] Deviation P-Wave: Absent QRS: Normal ST-T: Normal QT: Normal Comparison: NA - No Prior EKG Course - Vital Signs Text/Narrative:: 87 years old w f with a h/o a fib, on ASA, came to the ed by EMS due to low back pain. She was reaching our for a paper while bending foreword, when she suddenly felt a severe back pain. She was seen at the [facility] home yesterday when a X Ray showed a compression fx of her lower back. She was sent home. However, her back pain got worse, which prompted her to call 911. She had some dizziness at home as well. As she arrived here in the ed, her main complaint was low back pain, not to be able to take care of herself at her home. Any movement her back hurts extremely bad. No N/V/D no SOB or dizziness at this time. BP 141/76 RR 16 Pulse ox 96% on RA pulse 73 (irr irr) Temp 36.8. PE: Obese 87 years old w f with afib and low back pain Imaging: CT L spine: Compression fx L2 (30% depressed) Dis degeneration L2-S1, Osteoporaosis, no Spondylosis or spondylolisthesis Impression: Compression fx L2 (30% depressed) Dis degeneration L2-S1, Osteoporaosis. a fib with NVR, DNR Tx: Ice, Toradol Reexam: Some improvement, family arrived 12.50 pm Consultation: Dr. Jeter, Hospitalist, accepted the Pt for admission Plan: admit to med/surg for pain control, PT and possible temp placement Last Recorded V/S: Last Vital Signs Temp 36.4 C 10/12/17 14:00 Pulse 68 10/12/17 14:00 Resp 16 10/12/17 14:00 BP 128/70 10/12/17 14:00 Pulse Ox 96 10/12/17 13:10 - Orders/Labs/Meds Orders: Active Orders 24 hr Category Date Time Status Lumbar Spine wo Cont [CT] Stat Exams 10/12/17 10:29 Taken Ice Bag [Ice Therapy] [OM.PC] Routine Oth 10/12/17 10:29 Ordered Medication Orders Ibuprofen (Motrin) 600 mg PO Q6H PRN PRN Reason: Pain (mild 1-3) Morphine Sulfate (Morphine) 2 mg IVPUSH Q2H PRN PRN Reason: Pain (severe 7-10) Ondansetron HCl (Zofran) 4 mg IV Q4H PRN PRN Reason: Nausea/Vomiting Meds: Medications Generic Name Dose Route Start Last Admin Trade Name Freq PRN Reason Stop Dose Admin Ibuprofen 600 mg 10/12/17 12:58 Motrin PO Q6H PRN Pain (mild 1-3) Morphine Sulfate 2 mg 10/12/17 12:58 Morphine IVPUSH Q2H PRN Pain (severe 7-10) Ondansetron HCl 4 mg 10/12/17 12:58 Zofran IV Q4H PRN Nausea/Vomiting Discontinued Medications Generic Name Dose Route Start Last Admin Trade Name Freq PRN Reason Stop Dose Admin Ketorolac Tromethamine 30 mg 10/12/17 10:29 10/12/17 10:48 Toradol IM 10/12/17 10:30 30 mg ONETIME ONE Administration Departure - Departure Time of Disposition: 12:57 Disposition: Refer to Observation Condition: Fair Clinical Impression: Compression fracture of L2 Qualifiers: Encounter type: subsequent encounter Fracture type: closed - Discharge Information - My Orders Last 24 Hours: My Active Orders 10/12/17 10:29 Lumbar Spine wo Cont [CT] Stat Ice Bag [Ice Therapy] [OM.PC] Routine - Assessment/Plan Last 24 Hours: My Active Orders 10/12/17 10:29 Lumbar Spine wo Cont [CT] Stat Ice Bag [Ice Therapy] [OM.PC] Routine
[2017-10-12] MEDS ORDERED: Ondansetron 4 MG/2 ML SDV IV PRN (12:58)
[2017-10-12] MEDS ORDERED: Morphine 2 MG/ML Syringe IVPUSH PRN (12:58)
[2017-10-12] MEDS ORDERED: Ibuprofen 600 MG Tab PO PRN (12:58)
[2017-10-12] MEDS ORDERED: Acetaminophen 650 MG Tab.ER PO PRN (16:07)
[2017-10-12] MEDS ORDERED: Albuterol 8 GM Inhaler INH PRN (16:07)
[2017-10-12] MEDS ORDERED: Sodium Chloride 0.65% Nasal Spray 45 ML Bottle NAS PRN (16:07)
[2017-10-12] MEDS ORDERED: Carboxymethylcellulose 0.5%/Glycerin 0.9% Ophth Soln 15 ML Bottle EYEBOTH PRN (16:07)
--- NOTE | 2017-10-12 16:17 | PCM.HP ---
H&P History of Present Illness - General Date of Service: 10/12/17 Admit Problem/Dx: Admission Diagnosis/Problem Admission Diagnosis/Problem Compression fracture of lumbar spine Source of Information: Patient, EMS Notes Reviewed History Limitations: Reports: No Limitations - History of Present Illness Initial Comments - Free Text/Narative: This is an 87-year-old female patient with multiple medical problems. 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 She recently had a right bunion surgery in [place] and had the back pain then but was not evaluated. She was seen at [facility] yesterday and they did x- ray found a compression fracture. She is sent home on pain pills. Said overnight the pain became so severe that today she came in by ambulance. She's had no compression fracture before. She denies leg pain, paresthesia and weakness. When she moves she has more pain and when she is lying she is better. She says she's not able to take care of herself at home. She doesn't provider so she is a . back Pain Score (Numeric/FACES): 8 - Related Data Allergies/Adverse Reactions: Allergies Allergy/AdvReac Type Severity Reaction Status Date / Time gabapentin [From Neurontin] Allergy Cannot Verified 10/12/17 10:58 Remember avalox Allergy Cannot Uncoded 10/12/17 13:02 Remember Home Medications: Home Meds Acetaminophen [Tylenol Arthritis] 1,300 mg PO Q8H PRN 05/04/13 [History] Calcium Carbonate/Vitamin D3 [Calcium 600 + Vit D 400] 1 tab PO BID 05/04/13 [ History] Multivitamin [Daily Multiple Vitamin] 1 tab PO DAILY 05/04/13 [History] predniSONE [Prednisone] 7 mg PO DAILY 05/04/13 [History] Carvedilol 6.25 mg PO BID 01/21/15 [History] Mirtazapine [Remeron] 15 mg PO BEDTIME 03/03/16 [History] busPIRone [Buspar] 15 mg PO DAILY 03/03/16 [History] Cholecalciferol (Vitamin D3) [Vitamin D3] 2,000 unit PO DAILY 12/29/16 [History] Albuterol [Ventolin HFA] 2 puff INH TID PRN 10/12/17 [History] Aspirin 81 mg PO DAILY 10/12/17 [History] Carboxymethylcellulos/Glycerin [Refresh Optive] 2 drop EYEBOTH Q1H PRN 10/12/17 [History] Cetirizine [ZyrTEC] 10 mg PO DAILY 10/12/17 [History] Cyclobenzaprine [Flexeril] 5 mg PO BID PRN 10/12/17 [History] Fluticasone/Vilanterol [Breo Ellipta 200-25 Mcg INH] 1 inh INH DAILY 10/12/17 [ History] Furosemide 20 mg PO DAILY 10/12/17 [History] Hydrocodone/Acetaminophen [Hydrocodon-Acetaminophen 5-325] 1 tab PO Q4H PRN [History] Hydroxychloroquine Sulfate [Plaquenil] 200 mg PO BID 10/12/17 [History] Losartan/Hydrochlorothiazide [Losartan-HCTZ 100-25 MG] 1 tab PO DAILY 10/12/17 [ History] Batson-3S/DHA/Epa/Fish Oil [Batson-3 Fish Oil 1,000 mg Sfgl] 1 cap PO BID [History] Omeprazole 20 mg PO DAILY 10/12/17 [History] Sodium Chloride [[place]] 0.1 ml LOLA Q4H PRN 10/12/17 [History] Past Medical History HEENT History: Reports: Impaired Vision Other HEENT History: wears dentures Cardiovascular History: Reports: Afib, Hypertension Other Cardiovascular History: BROKEN HEART SYNDROME, ATRIAL FIB Respiratory History: Reports: Pneumonia, Recurrent Other Respiratory History: uses inhaler at hs Gastrointestinal History: Reports: Cholelithiasis, Diverticulosis Genitourinary History: Reports: None Other Genitourinary History: the dr says my kidneys are not working very well 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 Musculoskeletal History: Reports: Arthritis, RA, Other (See Below) Other Musculoskeletal History: both shoulders have diminished movement pt thinks she has torn rotator cuffs uses a walker Neurological History: Reports: None Psychiatric History: Reports: Depression Endocrine/Metabolic History: Reports: Obesity/BMI 30+ Dermatologic History: Reports: None - Infectious Disease History Infectious Disease History: Reports: Shingles Other Infectious Disease History: about 2 weeks ago had a bout of shingles had the shingles vaccine in the past - Past Surgical History GI Surgical History: Reports: Cholecystectomy Social & Family History - Family History Family Medical History: Unobtainable - Tobacco Use Smoking Status *Q: Never Smoker Second Hand Smoke Exposure: No - Caffeine Use Caffeine Use: Reports: Coffee - Recreational Drug Use Recreational Drug Use: No - Living Situation & Occupation Living situation: Reports: , Alone Occupation: Retired H&P Review of Systems - Review of Systems: Review Of Systems: See Below General: Reports: No Symptoms HEENT: Reports: No Symptoms Pulmonary: Reports: No Symptoms Cardiovascular: Reports: No Symptoms Gastrointestinal: Reports: No Symptoms Genitourinary: Reports: No Symptoms Musculoskeletal: Reports: Back Pain, Foot Pain (Right secondary to recent bunion surgery) Skin: Reports: No Symptoms Psychiatric: Reports: No Symptoms Neurological: Reports: No Symptoms Hematologic/Lymphatic: Reports: No Symptoms Immunologic: Reports: No Symptoms Exam - Exam Exam: See Below - Vital Signs Vital Signs: Last Vital Signs Temp 97.6 F 10/12/17 14:00 Pulse 68 10/12/17 14:00 Resp 16 10/12/17 14:00 BP 128/70 10/12/17 14:00 Pulse Ox 98 10/12/17 14:18 Weight: 201 lb - Exam General: Alert, Oriented, Cooperative HEENT: Hearing Intact, Posterior Pharynx Clear, TMs Clear Neck: Supple, Trachea Midline, Full Range of Motion. No: Carotid Bruit, JVD Lungs: Clear to Auscultation, Normal Respiratory Effort. No: Crackles, Rales, Rhonchi, Rub Cardiovascular: Regular Rate, Normal S1, Normal S2, Other (Irregular rhythm) GI/Abdominal Exam: Normal Bowel Sounds, Soft, Non-Tender, No Distention, No Abnormal Bruit Back Exam: Normal Inspection, Vertebral Tenderness, Other (Pain on palpation of the low back on the spine. Pain with movement.). No: Full Range of Motion Extremities: Normal Inspection, Normal Range of Motion, Non-Tender, No Pedal Edema, Other (Except right foot where she has a walking boot and the foot is wrapped secondary to surgery. Did not unwrap today.) Skin: Warm, Dry, Intact Neurological: Normal Speech, Normal Tone Neuro Extensive - Mental Status: Alert, Oriented x3, Normal Mood/Affect, Normal Cognition, Memory Intact Psychiatric: Alert, Normal Affect, Normal Mood - Problem List (1) Palliative care status SNOMED Code(s): 361490867 ICD Code: Z51.5 - ENCOUNTER FOR PALLIATIVE CARE Status: Acute Current Visit: Yes (2) Compression fracture of L2 SNOMED Code(s): 78803624955503693 ICD Code: S32.020A - WEDGE COMPRESSION FRACTURE OF SECOND LUMBAR VERTEBRA, INIT Status: Acute Current Visit: Yes Qualifiers: Encounter type: subsequent encounter Fracture type: closed Problem List Initiated/Reviewed/Updated: Yes Orders Last 24hrs: Active Orders 24 hr Category Date Time Status Admission Status [Patient Status] [ADT] Routine ADT 10/12/17 16:10 Ordered Oxygen Therapy [RC] PRN Care 10/12/17 12:58 Active Up With Assistance [RC] ASDIRECTED Care 10/12/17 12:58 Active Vital Signs [RC] QSHIFT Care 10/12/17 12:58 Active Consult to Occupational Therapy [OT Evaluation and Cons 10/12/17 16:06 Ordered Treatment] [CONS] Routine Consult to Physical Therapy [PT Evaluation and Cons 10/12/17 16:06 Ordered Treatment] [CONS] Routine Regular Diet [DIET] Diet 10/12/17 Dinner Active Lumbar Spine wo Cont [CT] Stat Exams 10/12/17 10:29 Taken Acetaminophen [Tylenol Extra Strength] Med 10/12/17 21:00 Ordered 1,000 mg PO TID Aspirin Med 10/13/17 09:00 Ordered 81 mg PO DAILY Calcium Carbonate/Vitamin D3 [Calcium 600 + Vit D 400] Med 10/12/17 21:00 Ordered 1 tab PO BID Carboxymethylcellulos/Glycerin [Refresh Optive] Med 10/12/17 16:07 Ordered 2 drop EYEBOTH Q1H PRN Carvedilol [Coreg] Med 10/12/17 21:00 Ordered 6.25 mg PO BID Cetirizine [ZyrTEC] Med 10/13/17 09:00 Ordered 10 mg PO DAILY Cholecalciferol (Vitamin D3) [Vitamin D3] Med 10/13/17 09:00 Ordered 2,000 unit PO DAILY Cyclobenzaprine [Flexeril] Med 10/12/17 16:07 Ordered 5 mg PO BID PRN Enoxaparin [Lovenox] Med 10/12/17 16:15 Ordered 30 mg SUBCUT Q24H Fluticasone/Vilanterol [Breo Ellipta 200-25 Mcg INH] Med 10/13/17 09:00 Ordered 1 inh INH DAILY Furosemide [Lasix] Med 10/13/17 09:00 Ordered 20 mg PO DAILY Hydrochlorothiazide/Losartan [Hyzaar 100-25 MG] Med 10/13/17 09:00 Ordered 1 tab PO DAILY Hydroxychloroquine [Plaquenil] Med 10/12/17 21:00 Ordered 200 mg PO BID Mirtazapine [Remeron] Med 10/12/17 21:00 Ordered 15 mg PO BEDTIME Morphine Med 10/12/17 12:58 Active 2 mg IVPUSH Q2H PRN Multivitamins [Tab-A-Chel] Med 10/13/17 09:00 Ordered 1 tab PO DAILY Batson-3S/DHA/Epa/Fish Oil [[place]-3 Fish Oil 1,000 mg Med 10/12/17 21:00 Ordered Sfgl] 1 cap PO BID Omeprazole [Omeprazole] Med 10/13/17 09:00 Ordered 20 mg PO DAILY Ondansetron [Zofran] Med 10/12/17 12:58 Active 4 mg IV Q4H PRN Sodium Chloride 0.65% [[place] Nasal [place]] Med 10/12/17 16:07 Ordered 0.1 ml LOLA Q4H PRN busPIRone [Buspar] Med 10/13/17 09:00 Ordered 15 mg PO DAILY predniSONE Med 10/13/17 09:00 Ordered 7 mg PO DAILY traMADol [Ultram] Med 10/12/17 17:00 Ordered 50 mg PO QID Ice Bag [Ice Therapy] [OM.PC] Routine Oth 10/12/17 10:29 Ordered SCD [Sequential Compression Device] [OM.PC] Routine Oth 10/12/17 16:06 Ordered Resuscitation Status Routine Resus Stat 10/12/17 12:58 Ordered Medication Orders Acetaminophen (Tylenol Extra Strength) 1,000 mg PO TID ANNALEE Aspirin (Aspirin) 81 mg PO DAILY ANNALEE Buspirone HCl (Buspar) 15 mg PO DAILY ANNALEE Carboxymethylcellulose (Refresh Optive) ml EYEBOTH Q1H PRN PRN Reason: Dry Eyes Carvedilol (Coreg) 6.25 mg PO BID ANNALEE Cetirizine HCl (Zyrtec) 10 mg PO DAILY ANNALEE Cyclobenzaprine HCl (Flexeril) 5 mg PO BID PRN PRN Reason: Spasms Enoxaparin Sodium (Lovenox) 30 mg SUBCUT Q24H [facility] Furosemide (Lasix) 20 mg PO DAILY [facility] HCTZ/Losartan Potassium (Hyzaar 100-25 Mg) 1 tab PO DAILY [facility] Hydroxychloroquine Sulfate (Plaquenil) 200 mg PO BID [facility] Morphine Sulfate (Morphine) 2 mg IVPUSH Q2H PRN PRN Reason: Pain (severe 7-10) Multivitamins/Minerals/Vitamin C (Tab-A-Chel) 1 tab PO DAILY [facility] Non-Formulary Medication (Calcium Carbonate/Vitamin D3 [Calcium 600 + Vit D 400] ) 1 tab PO BID [facility] Non-Formulary Medication (Cholecalciferol (Vitamin D3) [Vitamin D3]) 2,000 unit PO DAILY [facility] Non-Formulary Medication (Fluticasone/Vilanterol [Breo Ellipta 200-25 Mcg Inh]) 1 inh INH DAILY [facility] Non-Formulary Medication (Mirtazapine [Remeron]) 15 mg PO BEDTIME [facility] Non-Formulary Medication (Batson-3s/Dha/Epa/Fish Oil [[place]-3 Fish Oil 1,000 Mg Sfgl]) 1 cap PO BID [facility] Non-Formulary Medication (Omeprazole [Omeprazole]) 20 mg PO DAILY [facility] Ondansetron HCl (Zofran) 4 mg IV Q4H PRN PRN Reason: Nausea/Vomiting Prednisone (Prednisone) 7 mg PO DAILY [facility] Sodium Chloride ([place] Nasal [place]) 0.1 ml LOLA Q4H PRN PRN Reason: Congestion Tramadol HCl (Ultram) 50 mg PO QID [facility] Assessment/Plan Comment:: 1. Admit to the hospital. 2. Regular diet. 3. Reviewed CT scan that shows L2 fracture. 4. Lovenox and SCD 5. Continue her regular medication. 6. PT/OT/social service consult 7. Extra strength Tylenol thousand milligrams 3 times a day with tramadol 50 mg 4 times a day. Morphine IV when necessary for breakthrough pain. 8. Up with assist and in the chair.
[2017-10-12] MEDS: traMADol 50 MG Tab PO SCH ×2 (16:32→20:58)
[2017-10-12] MEDS: Enoxaparin 30 MG/0.3 ML Syringe SUBCUT SCH (16:32)
[2017-10-12] MEDS: Calcium Carbonate/Vitamin D3 1250 MG-200 Unit Tab PO SCH (20:56)
[2017-10-12] MEDS: Mirtazapine 15 MG Tab PO SCH (20:57)
[2017-10-12] MEDS: Acetaminophen 500 MG Tab PO SCH (20:57)
[2017-10-12] MEDS ORDERED: Fish Oil/Omega-3 Fatty Acids 1 Gm Cap PO SCH (21:00)
[2017-10-12] MEDS: Carvedilol 6.25 MG Tab PO SCH (21:05)
[2017-10-12] MEDS: Hydroxychloroquine 200 MG Tab PO SCH (21:06)
--- NOTE | 2017-10-13 07:54 | PCM.PN ---
- General Info Date of Service: 10/13/17 Admission Dx/Problem (Free Text): Patient states that her back is very sore this morning. Yesterday with the tramadol and Tylenol she says she is more comfortable. She was comfortable sleeping but then she had to get to the bathroom that her back hurt. She was not given any morphine IV last night. She has no other concerns. No fevers, chills, chest pain or shortness of breath. - Patient Data Vitals - Most Recent: Last Vital Signs Temp 97.5 F 10/13/17 05:00 Pulse 93 10/13/17 05:00 Resp 20 10/13/17 05:00 BP 164/83 H 10/13/17 05:00 Pulse Ox 98 10/13/17 05:00 Weight - Most Recent: 201 lb Med Orders - Current: Current Medications Acetaminophen (Tylenol Extra Strength) 1,000 mg PO TID [facility] Last Admin: 10/12/17 20:57 Dose: 1,000 mg Aspirin (Aspirin) 81 mg PO DAILY [facility] Buspirone HCl (Buspar) 15 mg PO DAILY [facility] Calcium Carbonate (Calcium Carbonate/Vitamin D 1250 Mg-200 Unit) 1 tab PO BID [facility] Last Admin: 10/12/17 20:56 Dose: 1 tab Carboxymethylcellulose (Refresh Optive) 0 ml EYEBOTH Q1H PRN PRN Reason: Dry Eyes Carvedilol (Coreg) 6.25 mg PO BID [facility] Last Admin: 10/12/17 21:05 Dose: 6.25 mg Cetirizine HCl (Zyrtec) 10 mg PO DAILY [facility] Cholecalciferol (Vitamin D3) 2,000 units PO DAILY [facility] Cyclobenzaprine HCl (Flexeril) 5 mg PO BID PRN PRN Reason: Spasms Enoxaparin Sodium (Lovenox) 30 mg SUBCUT Q24H [facility] Last Admin: 10/12/17 16:32 Dose: 30 mg Furosemide (Lasix) 20 mg PO DAILY [facility] HCTZ/Losartan Potassium (Hyzaar 100-25 Mg) 1 tab PO DAILY [facility] Hydroxychloroquine Sulfate (Plaquenil) 200 mg PO BID [facility] Last Admin: 10/12/17 21:06 Dose: 200 mg Mirtazapine (Remeron) 15 mg PO BEDTIME [facility] Last Admin: 10/12/17 20:57 Dose: 15 mg Morphine Sulfate (Morphine) 2 mg IVPUSH Q2H PRN PRN Reason: Pain (severe 7-10) Multivitamins/Minerals/Vitamin C (Tab-A-Chel) 1 tab PO DAILY [facility] Ondansetron HCl (Zofran) 4 mg IV Q4H PRN PRN Reason: Nausea/Vomiting Pantoprazole Sodium (Protonix) 40 mg PO DAILY [facility] Prednisone (Prednisone) 7 mg PO DAILY [facility] Sodium Chloride ([place] Nasal [place]) 0 ml LOLA Q4H PRN PRN Reason: Congestion Tramadol HCl (Ultram) 50 mg PO Q6H [facility] Discontinued Medications Acetaminophen (Tylenol Arthritis Pain) 1,300 mg PO Q8H PRN PRN Reason: Pain Albuterol (Ventolin Hfa) gm INH TID PRN PRN Reason: Wheezing Fish Oil (Fish Oil) 1 gm PO BID [facility] Last Admin: 10/12/17 21:07 Dose: Not Given Ibuprofen (Motrin) 600 mg PO Q6H PRN PRN Reason: Pain (mild 1-3) Ketorolac Tromethamine (Toradol) 30 mg IM ONETIME ONE Stop: 10/12/17 10:30 Last Admin: 10/12/17 10:48 Dose: 30 mg Fluticasone/Vilanterol [Breo Ellipta] 200-25mcg Inh 1 inh INH DAILY [facility] Tramadol HCl (Ultram) 50 mg PO QID [facility] Last Admin: 10/12/17 20:58 Dose: 50 mg - Exam General: Alert, Oriented, Cooperative Neck: Supple Lungs: Clear to Auscultation, Normal Respiratory Effort Cardiovascular: Regular Rate, No Murmurs, Irregular Rhythm - Problem List & Annotations (1) Palliative care status SNOMED Code(s): 211669472 Code(s): Z51.5 - ENCOUNTER FOR PALLIATIVE CARE Status: Acute Current Visit: Yes (2) Compression fracture of L2 SNOMED Code(s): 00254066364322691 Code(s): S32.020A - WEDGE COMPRESSION FRACTURE OF SECOND LUMBAR VERTEBRA, INIT Status: Acute Current Visit: Yes Qualifiers: Encounter type: subsequent encounter Fracture type: closed - Problem List Review Problem List Initiated/Reviewed/Updated: Yes - My Orders Last 24 Hours: My Active Orders 10/12/17 16:06 Consult to Occupational Therapy [OT Evaluation and Treatment] [CONS] Routine Consult to Physical Therapy [PT Evaluation and Treatment] [CONS] Routine SCD [Sequential Compression Device] [OM.PC] Routine 10/12/17 16:07 Carboxymethylcellulos/Glycerin [Refresh Optive] 0 ml EYEBOTH Q1H PRN Cyclobenzaprine [Flexeril] 5 mg PO BID PRN Sodium Chloride 0.65% [[place] Nasal [place]] 0 ml LOLA Q4H PRN 10/12/17 16:10 Admission Status [Patient Status] [ADT] Routine 10/12/17 16:15 Enoxaparin [Lovenox] 30 mg SUBCUT Q24H 10/12/17 21:00 Acetaminophen [Tylenol Extra Strength] 1,000 mg PO TID Calcium Carbonate/Vitamin D3 [Calcium Carbonate/Vitamin D 1250 MG-200 Unit] 1 tab PO BID Carvedilol [Coreg] 6.25 mg PO BID Hydroxychloroquine [Plaquenil] 200 mg PO BID Mirtazapine [Remeron] 15 mg PO BEDTIME 10/13/17 07:51 Consult to Oss Architect [CONS] Routine 10/13/17 08:00 traMADol [Ultram] 50 mg PO Q6H 10/13/17 09:00 Aspirin 81 mg PO DAILY Cetirizine [ZyrTEC] 10 mg PO DAILY Cholecalciferol (Vitamin D3) [Vitamin D3] 2,000 units PO DAILY Furosemide [Lasix] 20 mg PO DAILY Hydrochlorothiazide/Losartan [Hyzaar 100-25 MG] 1 tab PO DAILY Multivitamins [Tab-A-Chel] 1 tab PO DAILY Pantoprazole [ProTONIX] 40 mg PO DAILY busPIRone [Buspar] 15 mg PO DAILY predniSONE 7 mg PO DAILY - Plan Plan:: 1. Change the tramadol every 6 hours from 4 times a day to spread it out little bit. Will see if this helps. Continue the Tylenol as is. 2. PT/OT/social service to see in the a.m. in regards to possibility of rehabilitation. 3. Up in chair and ambulate with assist and walker today per nurse.
[2017-10-13] MEDS: Sodium Chloride 0.9% 10 ML Syringe FLUSH PRN ×2 (08:30→16:50)
[2017-10-13] MEDS: Carvedilol 6.25 MG Tab PO SCH ×2 (08:56→20:12)
[2017-10-13] MEDS: Multivitamin Tab PO SCH (08:57)
[2017-10-13] MEDS: Aspirin 81 MG Tab.Chew PO SCH (08:57)
[2017-10-13] MEDS: Calcium Carbonate/Vitamin D3 1250 MG-200 Unit Tab PO SCH ×2 (08:57→20:11)
[2017-10-13] MEDS: Furosemide 20 MG Tab PO SCH (08:58)
[2017-10-13] MEDS: Pantoprazole 40 MG Tab.CR PO SCH (08:58)
[2017-10-13] MEDS: Acetaminophen 500 MG Tab PO SCH ×3 (08:58→20:13)
[2017-10-13] MEDS: Cetirizine 10 MG Tab PO SCH (08:58)
[2017-10-13] MEDS: Hydroxychloroquine 200 MG Tab PO SCH ×2 (08:59→20:12)
[2017-10-13] MEDS: traMADol 50 MG Tab PO SCH ×3 (08:59→20:11)
[2017-10-13] MEDS ORDERED: VILANTEROL INH SCH (09:00)
[2017-10-13] MEDS ORDERED: predniSONE 1 MG Tab PO SCH (09:00)
[2017-10-13] MEDS ORDERED: FLUTICASONE INH SCH (09:00)
[2017-10-13] MEDS ORDERED: Hydrochlorothiazide/Losartan 25-100 MG Tab PO SCH (09:00)
[2017-10-13] MEDS: Cholecalciferol (Vitamin D3) 1,000 Unit Tab PO SCH (09:13)
[2017-10-13] MEDS: Cyclobenzaprine 10 MG Tab PO PRN (09:13)
[2017-10-13] MEDS: busPIRone 15 MG Tab PO SCH (10:28)
[2017-10-13] MEDS: Losartan 100 MG Tab PO SCH (10:28)
[2017-10-13] MEDS: Hydrochlorothiazide 25 MG Tab PO SCH (10:28)
[2017-10-13] MEDS: Enoxaparin 30 MG/0.3 ML Syringe SUBCUT SCH (16:48)
[2017-10-13] MEDS: Mirtazapine 15 MG Tab PO SCH (20:13)
[2017-10-14] MEDS: traMADol 50 MG Tab PO SCH ×2 (02:19→07:30)
--- NOTE | 2017-10-14 08:09 | PCM.PN ---
- General Info Date of Service: 10/14/17 Admission Dx/Problem (Free Text): This is an 87-year-old female patient with L2 fracture. Patient states she doesn 't believe her pain is quite controlled. She when she gets in and out of bed. She's having BMs. She was given some MS for breakthrough pain this morning. She has no leg pain, paresthesias or weakness. - Patient Data Vitals - Most Recent: Last Vital Signs Temp 97.7 F 10/14/17 07:51 Pulse 70 10/14/17 07:51 Resp 16 10/14/17 07:51 BP 135/57 L 10/14/17 07:51 Pulse Ox 93 L 10/14/17 07:51 Weight - Most Recent: 201 lb Med Orders - Current: Current Medications Acetaminophen (Tylenol Extra Strength) 1,000 mg PO TID [facility] Last Admin: 10/13/17 20:13 Dose: 1,000 mg Hydrocodone Bitart/Acetaminophen ([place] 325-5 Mg) 1 tab PO Q6H [facility] Aspirin (Aspirin) 81 mg PO DAILY [facility] Last Admin: 10/13/17 08:57 Dose: 81 mg Buspirone HCl (Buspar) 15 mg PO DAILY [facility] Last Admin: 10/13/17 10:28 Dose: 15 mg Calcium Carbonate (Calcium Carbonate/Vitamin D 1250 Mg-200 Unit) 1 tab PO BID [facility] Last Admin: 10/13/17 20:11 Dose: 1 tab Carboxymethylcellulose (Refresh Optive) 0 ml EYEBOTH Q1H PRN PRN Reason: Dry Eyes Carvedilol (Coreg) 6.25 mg PO BID [facility] Last Admin: 10/13/17 20:12 Dose: 6.25 mg Cetirizine HCl (Zyrtec) 10 mg PO DAILY [facility] Last Admin: 10/13/17 08:58 Dose: 10 mg Cholecalciferol (Vitamin D3) 2,000 units PO DAILY [facility] Last Admin: 10/13/17 09:13 Dose: 2,000 units Cyclobenzaprine HCl (Flexeril) 5 mg PO BID PRN PRN Reason: Spasms Last Admin: 10/13/17 09:13 Dose: 5 mg Enoxaparin Sodium (Lovenox) 30 mg SUBCUT Q24H [facility] Last Admin: 10/13/17 16:48 Dose: 30 mg Furosemide (Lasix) 20 mg PO DAILY [facility] Last Admin: 10/13/17 08:58 Dose: 20 mg Hydrochlorothiazide (Hydrochlorothiazide) 25 mg PO DAILY [facility] Last Admin: 10/13/17 10:28 Dose: 25 mg Hydroxychloroquine Sulfate (Plaquenil) 200 mg PO BID [facility] Last Admin: 10/13/17 20:12 Dose: 200 mg Losartan Potassium (Cozaar) 100 mg PO DAILY [facility] Last Admin: 10/13/17 10:28 Dose: 100 mg Mirtazapine (Remeron) 15 mg PO BEDTIME [facility] Last Admin: 10/13/17 20:13 Dose: 15 mg Multivitamins/Minerals/Vitamin C (Tab-A-Chel) 1 tab PO DAILY [facility] Last Admin: 10/13/17 08:57 Dose: 1 tab Ondansetron HCl (Zofran) 4 mg IV Q4H PRN PRN Reason: Nausea/Vomiting Pantoprazole Sodium (Protonix) 40 mg PO DAILY [facility] Last Admin: 10/13/17 08:58 Dose: 40 mg Prednisone (Prednisone) 7 mg PO DAILY [facility] Last Admin: 10/13/17 08:56 Dose: 7 mg Sodium Chloride ([place] Nasal [place]) 0 ml LOLA Q4H PRN PRN Reason: Congestion Sodium Chloride (Saline Flush) 10 ml FLUSH ASDIRECTED PRN PRN Reason: Keep Vein Open Last Admin: 10/13/17 16:50 Dose: 10 ml Discontinued Medications Acetaminophen (Tylenol Arthritis Pain) 1,300 mg PO Q8H PRN PRN Reason: Pain Albuterol (Ventolin Hfa) gm INH TID PRN PRN Reason: Wheezing Fish Oil (Fish Oil) 1 gm PO BID [facility] Last Admin: 10/12/17 21:07 Dose: Not Given HCTZ/Losartan Potassium (Hyzaar 100-25 Mg) 1 tab PO DAILY [facility] Last Admin: 10/13/17 10:31 Dose: Not Given Ibuprofen (Motrin) 600 mg PO Q6H PRN PRN Reason: Pain (mild 1-3) Ketorolac Tromethamine (Toradol) 30 mg IM ONETIME ONE Stop: 10/12/17 10:30 Last Admin: 10/12/17 10:48 Dose: 30 mg Morphine Sulfate (Morphine) 2 mg IVPUSH Q2H PRN PRN Reason: Pain (severe 7-10) Last Admin: 10/14/17 07:28 Dose: 2 mg Fluticasone/Vilanterol [Breo Ellipta] 200-25mcg Inh 1 inh INH DAILY [facility] Tramadol HCl (Ultram) 50 mg PO QID [facility] Last Admin: 10/12/17 20:58 Dose: 50 mg Tramadol HCl (Ultram) 50 mg PO Q6H [facility] Last Admin: 10/14/17 07:30 Dose: 50 mg - Exam General: Alert, Oriented, Cooperative Lungs: Normal Respiratory Effort Back Exam: Vertebral Tenderness - Problem List & Annotations (1) Palliative care status SNOMED Code(s): 614308706 Code(s): Z51.5 - ENCOUNTER FOR PALLIATIVE CARE Status: Acute Current Visit: Yes (2) Compression fracture of L2 SNOMED Code(s): 18864289729754237 Code(s): S32.020A - WEDGE COMPRESSION FRACTURE OF SECOND LUMBAR VERTEBRA, INIT Status: Acute Current Visit: Yes Qualifiers: Encounter type: subsequent encounter Fracture type: closed - Problem List Review Problem List Initiated/Reviewed/Updated: Yes - My Orders Last 24 Hours: My Active Orders 10/13/17 07:51 Consult to Computer Applications Developer [CONS] Routine 10/13/17 09:00 Aspirin 81 mg PO DAILY Cetirizine [ZyrTEC] 10 mg PO DAILY Cholecalciferol (Vitamin D3) [Vitamin D3] 2,000 units PO DAILY Furosemide [Lasix] 20 mg PO DAILY Multivitamins [Tab-A-Chel] 1 tab PO DAILY Pantoprazole [ProTONIX] 40 mg PO DAILY busPIRone [Buspar] 15 mg PO DAILY predniSONE 7 mg PO DAILY 10/13/17 10:30 Losartan [Cozaar] 100 mg PO DAILY hydroCHLOROthiazide 25 mg PO DAILY 10/13/17 10:34 Sodium Chloride 0.9% [Saline Flush] 10 ml FLUSH ASDIRECTED PRN 10/14/17 08:15 Acetaminophen/HYDROcodone [[place] 325-5 MG] 1 tab PO Q6H - Plan Plan:: 1. DC IV 2. DC MS 3. DC Tylenol 4. DC tramadol 5. Hydrocodone 5 x 3 25 one every 4 hours from 7 AM to 8 PM and then every 6 hours after that. 6. PT/OT eval today.
[2017-10-14] MEDS: Aspirin 81 MG Tab.Chew PO SCH (09:14)
[2017-10-14] MEDS: Calcium Carbonate/Vitamin D3 1250 MG-200 Unit Tab PO SCH ×2 (09:15→20:48)
[2017-10-14] MEDS: Carvedilol 6.25 MG Tab PO SCH ×2 (09:15→20:49)
[2017-10-14] MEDS: busPIRone 15 MG Tab PO SCH (09:15)
[2017-10-14] MEDS: Losartan 100 MG Tab PO SCH (09:16)
[2017-10-14] MEDS: Furosemide 20 MG Tab PO SCH (09:16)
[2017-10-14] MEDS: Hydrochlorothiazide 25 MG Tab PO SCH (09:16)
[2017-10-14] MEDS: Hydroxychloroquine 200 MG Tab PO SCH ×2 (09:17→21:06)
[2017-10-14] MEDS: Multivitamin Tab PO SCH (09:18)
[2017-10-14] MEDS: Cholecalciferol (Vitamin D3) 1,000 Unit Tab PO SCH (09:18)
[2017-10-14] MEDS: Cetirizine 10 MG Tab PO SCH (09:19)
[2017-10-14] MEDS: Acetaminophen/HYDROcodone 325-5 MG Tab PO SCH ×4 (09:27→21:04)
[2017-10-14] MEDS: Pantoprazole 40 MG Tab.CR PO SCH (09:28)
[2017-10-14] MEDS: Enoxaparin 30 MG/0.3 ML Syringe SUBCUT SCH (16:25)
[2017-10-14] MEDS: Cephalexin 500 MG Cap PO SCH (21:05)
[2017-10-14] MEDS: Mirtazapine 15 MG Tab PO SCH (21:06)
[2017-10-15] MEDS ORDERED: Acetaminophen/HYDROcodone 325-5 MG Tab PO SCH (02:00)
--- NOTE | 2017-10-15 07:50 | PCM.PN ---
- General Info Date of Service: 10/15/17 Admission Dx/Problem (Free Text): Patient states she had some pain last night when she moves and gets out of bed. Better when she sitting and standing. She lays hydrocodone is working better than the tramadol. She was complaining dysuria so a UA was done was positive for UTI. - Patient Data Vitals - Most Recent: Last Vital Signs Temp 97.6 F 10/15/17 00:00 Pulse 75 10/15/17 00:00 Resp 16 10/15/17 00:00 BP 168/82 H 10/15/17 00:00 Pulse Ox 95 10/15/17 00:00 Weight - Most Recent: 204 lb I&O - Last 24 Hours: Intake & Output 10/14/17 10/15/17 10/15/17 22:59 06:59 14:59 Intake Total 100 Output Total 350 Balance -250 Lab Results Last 24 Hours: Laboratory Results - last 24 hr 10/14/17 Range/Units 18:40 Urine Color Yellow (YELLOW) Urine Appearance Slightly cloudy (CLEAR) Urine pH 6.0 (5.0-6.5) Ur Specific [place] 1.015 (1.010-1.025) Urine Protein Negative (NEGATIVE) mg/dL Urine Glucose (UA) Normal (NEGATIVE) mg/dL Urine Ketones Negative (NEGATIVE) mg/dL Urine Occult Blood Moderate H (NEGATIVE) Urine Nitrite Negative (NEGATIVE) Urine Bilirubin Negative (NEGATIVE) Urine Urobilinogen Normal (NEGATIVE) mg/dL Ur Leukocyte Esterase Large H (NEGATIVE) Urine RBC 5-10 (0) Urine WBC 20-30 H (0) Ur Squamous Epith Cells Few H (NS,R,O) Urine Bacteria Moderate H (NS) Med Orders - Current: Current Medications Hydrocodone Bitart/Acetaminophen ([place] 325-5 Mg) 1 tab PO 0800,1200,1600,2000 [facility] Last Admin: 10/14/17 21:04 Dose: 1 tab Hydrocodone Bitart/Acetaminophen ([place] 325-5 Mg) 1 tab PO DAILY@0200 [facility] Last Admin: 10/15/17 02:23 Dose: 1 tab Aspirin (Aspirin) 81 mg PO DAILY [facility] Last Admin: 10/14/17 09:14 Dose: 81 mg Buspirone HCl (Buspar) 15 mg PO DAILY [facility] Last Admin: 10/14/17 09:15 Dose: 15 mg Calcium Carbonate (Calcium Carbonate/Vitamin D 1250 Mg-200 Unit) 1 tab PO BID [facility] Last Admin: 10/14/17 20:48 Dose: 1 tab Carboxymethylcellulose (Refresh Optive) 0 ml EYEBOTH Q1H PRN PRN Reason: Dry Eyes Carvedilol (Coreg) 6.25 mg PO BID [facility] Last Admin: 10/14/17 20:49 Dose: 6.25 mg Cephalexin (Keflex) 500 mg PO TID [facility] Last Admin: 10/14/17 21:05 Dose: 500 mg Cetirizine HCl (Zyrtec) 10 mg PO DAILY [facility] Last Admin: 10/14/17 09:19 Dose: 10 mg Cholecalciferol (Vitamin D3) 2,000 units PO DAILY [facility] Last Admin: 10/14/17 09:18 Dose: 2,000 units Cyclobenzaprine HCl (Flexeril) 5 mg PO BID PRN PRN Reason: Spasms Last Admin: 10/13/17 09:13 Dose: 5 mg Enoxaparin Sodium (Lovenox) 30 mg SUBCUT Q24H [facility] Last Admin: 10/14/17 16:25 Dose: 30 mg Furosemide (Lasix) 20 mg PO DAILY [facility] Last Admin: 10/14/17 09:16 Dose: 20 mg Hydrochlorothiazide (Hydrochlorothiazide) 25 mg PO DAILY [facility] Last Admin: 10/14/17 09:16 Dose: 25 mg Hydroxychloroquine Sulfate (Plaquenil) 200 mg PO BID [facility] Last Admin: 10/14/17 21:06 Dose: 200 mg Losartan Potassium (Cozaar) 100 mg PO DAILY [facility] Last Admin: 10/14/17 09:16 Dose: 100 mg Mirtazapine (Remeron) 15 mg PO BEDTIME [facility] Last Admin: 10/14/17 21:06 Dose: 15 mg Multivitamins/Minerals/Vitamin C (Tab-A-Chel) 1 tab PO DAILY [facility] Last Admin: 10/14/17 09:18 Dose: 1 tab Ondansetron HCl (Zofran) 4 mg IV Q4H PRN PRN Reason: Nausea/Vomiting Pantoprazole Sodium (Protonix) 40 mg PO DAILY [facility] Last Admin: 10/14/17 09:28 Dose: 40 mg Prednisone 5 mg/ Prednisone 2 (mg) 7 mg PO DAILY [facility] Last Admin: 10/14/17 09:17 Dose: 7 mg Sodium Chloride ([place] Nasal [place]) 0 ml LOLA Q4H PRN PRN Reason: Congestion Sodium Chloride (Saline Flush) 10 ml FLUSH ASDIRECTED PRN PRN Reason: Keep Vein Open Last Admin: 10/13/17 16:50 Dose: 10 ml Discontinued Medications Acetaminophen (Tylenol Arthritis Pain) 1,300 mg PO Q8H PRN PRN Reason: Pain Acetaminophen (Tylenol Extra Strength) 1,000 mg PO TID [facility] Last Admin: 10/13/17 20:13 Dose: 1,000 mg Albuterol (Ventolin Hfa) gm INH TID PRN PRN Reason: Wheezing Fish Oil (Fish Oil) 1 gm PO BID [facility] Last Admin: 10/12/17 21:07 Dose: Not Given HCTZ/Losartan Potassium (Hyzaar 100-25 Mg) 1 tab PO DAILY [facility] Last Admin: 10/13/17 10:31 Dose: Not Given Ibuprofen (Motrin) 600 mg PO Q6H PRN PRN Reason: Pain (mild 1-3) Ketorolac Tromethamine (Toradol) 30 mg IM ONETIME ONE Stop: 10/12/17 10:30 Last Admin: 10/12/17 10:48 Dose: 30 mg Morphine Sulfate (Morphine) 2 mg IVPUSH Q2H PRN PRN Reason: Pain (severe 7-10) Last Admin: 10/14/17 07:28 Dose: 2 mg Fluticasone/Vilanterol [Breo Ellipta] 200-25mcg Inh 1 inh INH DAILY [facility] Prednisone (Prednisone) 7 mg PO DAILY [facility] Last Admin: 10/13/17 08:56 Dose: 7 mg Tramadol HCl (Ultram) 50 mg PO QID [facility] Last Admin: 10/12/17 20:58 Dose: 50 mg Tramadol HCl (Ultram) 50 mg PO Q6H [facility] Last Admin: 10/14/17 07:30 Dose: 50 mg - Exam General: Alert, Oriented, Cooperative Lungs: Normal Respiratory Effort - Problem List & Annotations (1) Palliative care status SNOMED Code(s): 540394175 Code(s): Z51.5 - ENCOUNTER FOR PALLIATIVE CARE Status: Acute Current Visit: Yes (2) Compression fracture of L2 SNOMED Code(s): 62880392173174369 Code(s): S32.020A - WEDGE COMPRESSION FRACTURE OF SECOND LUMBAR VERTEBRA, INIT Status: Acute Current Visit: Yes Qualifiers: Encounter type: subsequent encounter Fracture type: closed (3) UTI (urinary tract infection) SNOMED Code(s): 39323608 Code(s): N39.0 - URINARY TRACT INFECTION, SITE NOT SPECIFIED Status: Acute Current Visit: Yes - Problem List Review Problem List Initiated/Reviewed/Updated: Yes - My Orders Last 24 Hours: My Active Orders 10/14/17 08:00 Acetaminophen/HYDROcodone [[place] 325-5 MG] 1 tab PO 0800,1200,1600,2000 10/14/17 09:00 Prednisone 7 mg PO DAILY 10/14/17 18:40 CULTURE URINE [RM] Routine UA W/MICROSCOPIC [URIN] Routine 10/14/17 21:00 cephALEXin [Keflex] 500 mg PO TID 10/15/17 02:00 Acetaminophen/HYDROcodone [[place] 325-5 MG] 1 tab PO DAILY@0200 - Plan Plan:: 1. Continue current care. 2. Patient will be transferred to a rehabilitation facility soon as she is okay. 3. Cephalexin 500 mg 3 times a day for UTI. Awaiting culture. Unlikely this is hospital acquired.
[2017-10-15] MEDS: Cyclobenzaprine 10 MG Tab PO PRN (08:44)
[2017-10-15] MEDS: Cholecalciferol (Vitamin D3) 1,000 Unit Tab PO SCH (08:45)
[2017-10-15] MEDS: Cephalexin 500 MG Cap PO SCH (08:45)
[2017-10-15] MEDS: Losartan 100 MG Tab PO SCH (08:46)
[2017-10-15] MEDS: Multivitamin Tab PO SCH (08:46)
[2017-10-15] MEDS: Furosemide 20 MG Tab PO SCH (08:46)
[2017-10-15] MEDS: Hydroxychloroquine 200 MG Tab PO SCH (08:46)
[2017-10-15] MEDS: Cetirizine 10 MG Tab PO SCH (08:46)
[2017-10-15] MEDS: busPIRone 15 MG Tab PO SCH (08:46)
[2017-10-15] MEDS: Carvedilol 6.25 MG Tab PO SCH (08:46)
[2017-10-15] MEDS: Aspirin 81 MG Tab.Chew PO SCH (08:47)
[2017-10-15] MEDS: Hydrochlorothiazide 25 MG Tab PO SCH (08:47)
[2017-10-15] MEDS: Calcium Carbonate/Vitamin D3 1250 MG-200 Unit Tab PO SCH (08:47)
[2017-10-15 08:52] VITALS: BP 147/91
[2017-10-15] MEDS: Pantoprazole 40 MG Tab.CR PO SCH (08:57)
[2017-10-15] MEDS: Acetaminophen/HYDROcodone 325-5 MG Tab PO SCH (08:57)
[2017-10-15] MEDS ORDERED: Tuberculin, PPD 5 Units/0.1 ML 1 ML MDV IDERM ONE (09:00)
--- NOTE | 2017-10-15 09:15 | PCM.SN ---
- Free Text/Narrative Note: Patient had a bunion surgery. 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 We addressed and looked at the wound. The stitches are place with no drainage and minimal erythema. Redress and follow-up with podiatry in 1 week.
--- NOTE | 2017-10-15 10:45 | PCM.DCSUM1 ---
Discharge Summary - Hospital Course Free Text/Narrative:: Hospital course-patient was placed in the hospital for pain control/PT/OT. We initially gave her Tylenol thousand 3 times a day with tramadol scheduled every 6 hours. It didn't quite control her pain. So I increase her to hydrocodone 5 x 325 every 6 hours and once at night. Patient had most of her pain when she was given in and out of bed. She was able to walk with a walker. PT/OT saw her. Rena Lara she was a candidate for swing bed. She did come in over the weekend so she was in for 3 days. She elected to go to [facility] because her daughter works there. She'll be discharged to [facility] on hydrocodone every 4 hours when necessary. PT/OT. The day before discharge she started having some dysuria and had a positive year. Started on Keflex 500 mg 3 times a day. No catheters placed. Not likely hospital associated. Brief History: This is an 87-year-old female patient with multiple medical problems. 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 She recently had a right bunion surgery in [place] and had the back pain then but was not evaluated. She was seen at [facility] yesterday and they did x-ray found a compression fracture. She is sent home on pain pills. Said overnight the pain became so severe that today she came in by ambulance. She's had no compression fracture before. She denies leg pain, paresthesia and weakness. When she moves she has more pain and when she is lying she is better. She says she's not able to take care of herself at home. She doesn't provider so she is a . Diagnosis: Stroke: No - Discharge Data Discharge Date: 10/15/17 Discharge Disposition: DC/Tfer to [facility] Condition: Stable - Discharge Diagnosis/Problem(s) (1) Palliative care status SNOMED Code(s): 982754689 ICD Code: Z51.5 - ENCOUNTER FOR PALLIATIVE CARE Status: Acute Current Visit: Yes (2) Compression fracture of L2 SNOMED Code(s): 58287009766539324 ICD Code: S32.020A - WEDGE COMPRESSION FRACTURE OF SECOND LUMBAR VERTEBRA, INIT Status: Acute Current Visit: Yes Qualifiers: Encounter type: subsequent encounter Fracture type: closed (3) UTI (urinary tract infection) SNOMED Code(s): 23936221 ICD Code: N39.0 - URINARY TRACT INFECTION, SITE NOT SPECIFIED Status: Acute Current Visit: Yes Qualifiers: Urinary tract infection type: acute cystitis - Patient Summary/Data Consults: Consultations 10/12/17 16:06 Consult to Occupational Therapy [OT Evaluation and Treatment] [CONS] Routine Please Evaluate and Treat. OT Reason for Consult: Strengthening This query below is only for informational purposes and is not editable. Admission Diagnosis/Problem: Compression fracture of lumbar spine Consult to Physical Therapy [PT Evaluation and Treatment] [CONS] Routine Please Evaluate and Treat. PT Reason for Consult: Strengthening This query below is only for informational purposes and is not editable. Admission Diagnosis/Problem: Compression fracture of lumbar spine 10/13/17 07:51 Consult to [employer] [CONS] Routine Comment: Physician Instructions: - Patient Instructions Diet: Regular Diet as Tolerated Activity: As Tolerated Driving: Do Not Drive Showering/Bathing: May Shower Other/Special Instructions: 1. Recheck with Dr. Carpenter in one week. 2. OT/ PT. 3. Transfer to [facility] for rehab. 4. Podiatry recheck per patient. - Discharge Plan Prescriptions/Med Rec: cephALEXin [Keflex] 500 mg PO TID #21 cap Home Medications: Home Meds Acetaminophen [Tylenol Arthritis] 1,300 mg PO Q8H PRN 05/04/13 [History] Calcium Carbonate/Vitamin D3 [Calcium 600 + Vit D 400] 1 tab PO BID 05/04/13 [ History] Multivitamin [Daily Multiple Vitamin] 1 tab PO DAILY 05/04/13 [History] predniSONE [Prednisone] 7 mg PO DAILY 05/04/13 [History] Carvedilol 6.25 mg PO BID 01/21/15 [History] Mirtazapine [Remeron] 15 mg PO BEDTIME 03/03/16 [History] busPIRone [Buspar] 15 mg PO DAILY 03/03/16 [History] Cholecalciferol (Vitamin D3) [Vitamin D3] 2,000 unit PO DAILY 12/29/16 [History] Albuterol [Ventolin HFA] 2 puff INH TID PRN 10/12/17 [History] Aspirin 81 mg PO DAILY 10/12/17 [History] Carboxymethylcellulos/Glycerin [Refresh Optive] 2 drop EYEBOTH Q1H PRN 10/12/17 [History] Cetirizine [ZyrTEC] 10 mg PO DAILY 10/12/17 [History] Cyclobenzaprine [Flexeril] 5 mg PO BID PRN 10/12/17 [History] Fluticasone/Vilanterol [Breo Ellipta 200-25 Mcg INH] 1 inh INH DAILY 10/12/17 [ History] Furosemide 20 mg PO DAILY 10/12/17 [History] Hydrocodone/Acetaminophen [Hydrocodon-Acetaminophen 5-325] 1 tab PO Q4H PRN [History] Hydroxychloroquine Sulfate [Plaquenil] 200 mg PO BID 10/12/17 [History] Losartan/Hydrochlorothiazide [Losartan-HCTZ 100-25 MG] 1 tab PO DAILY 10/12/17 [ History] Omeprazole 20 mg PO DAILY 10/12/17 [History] Sodium Chloride [Yazoo] 0.1 ml LOLA Q4H PRN 10/12/17 [History] Acetaminophen/HYDROcodone [Leota 325-5 MG] 1 tab PO Q4H #60 tablet 10/15/17 [Rx] cephALEXin [Keflex] 500 mg PO TID #21 cap 10/15/17 [Rx] Patient Handouts: Fall Prevention in Hospitals, Adult, Spinal Compression Fracture, Venous Thromboembolism Prevention Forms: ED Department Discharge Referrals: Balaji Carpenter MD [Primary Care Provider] - - Discharge Summary/Plan Comment DC Time >30 min.: No - Patient Data Vitals - Most Recent: Last Vital Signs Temp 97.9 F 10/15/17 07:40 Pulse 52 L 10/15/17 08:46 Resp 14 10/15/17 07:40 BP 147/91 H 10/15/17 08:46 Pulse Ox 97 10/15/17 07:40 Weight - Most Recent: 204 lb I&O - Last 24 hours: Intake & Output 10/14/17 10/15/17 10/15/17 22:59 06:59 14:59 Intake Total 100 Output Total 350 Balance -250 Lab Results - Last 24 hrs: Laboratory Results - last 24 hr 10/14/17 Range/Units 18:40 Urine Color Yellow (YELLOW) Urine Appearance Slightly cloudy (CLEAR) Urine pH 6.0 (5.0-6.5) Ur Specific [place] 1.015 (1.010-1.025) Urine Protein Negative (NEGATIVE) mg/dL Urine Glucose (UA) Normal (NEGATIVE) mg/dL Urine Ketones Negative (NEGATIVE) mg/dL Urine Occult Blood Moderate H (NEGATIVE) Urine Nitrite Negative (NEGATIVE) Urine Bilirubin Negative (NEGATIVE) Urine Urobilinogen Normal (NEGATIVE) mg/dL Ur Leukocyte Esterase Large H (NEGATIVE) Urine RBC 5-10 (0) Urine WBC 20-30 H (0) Ur Squamous Epith Cells Few H (NS,R,O) Urine Bacteria Moderate H (NS) Med Orders - Current: Current Medications Hydrocodone Bitart/Acetaminophen (Leota 325-5 Mg) 1 tab PO 0800,1200,1600,2000 [facility] Last Admin: 10/15/17 08:57 Dose: 1 tab Hydrocodone Bitart/Acetaminophen (Leota 325-5 Mg) 1 tab PO DAILY@0200 [facility] Last Admin: 10/15/17 02:23 Dose: 1 tab Aspirin (Aspirin) 81 mg PO DAILY [facility] Last Admin: 10/15/17 08:47 Dose: 81 mg Buspirone HCl (Buspar) 15 mg PO DAILY [facility] Last Admin: 10/15/17 08:46 Dose: 15 mg Calcium Carbonate (Calcium Carbonate/Vitamin D 1250 Mg-200 Unit) 1 tab PO BID [facility] Last Admin: 10/15/17 08:47 Dose: 1 tab Carboxymethylcellulose (Refresh Optive) 0 ml EYEBOTH Q1H PRN PRN Reason: Dry Eyes Carvedilol (Coreg) 6.25 mg PO BID [facility] Last Admin: 10/15/17 08:46 Dose: 6.25 mg Cephalexin (Keflex) 500 mg PO TID [facility] Last Admin: 10/15/17 08:45 Dose: 500 mg Cetirizine HCl (Zyrtec) 10 mg PO DAILY [facility] Last Admin: 10/15/17 08:46 Dose: 10 mg Cholecalciferol (Vitamin D3) 2,000 units PO DAILY [facility] Last Admin: 10/15/17 08:45 Dose: 2,000 units Cyclobenzaprine HCl (Flexeril) 5 mg PO BID PRN PRN Reason: Spasms Last Admin: 10/15/17 08:44 Dose: 5 mg Enoxaparin Sodium (Lovenox) 30 mg SUBCUT Q24H [facility] Last Admin: 10/14/17 16:25 Dose: 30 mg Furosemide (Lasix) 20 mg PO DAILY [facility] Last Admin: 10/15/17 08:46 Dose: 20 mg Hydrochlorothiazide (Hydrochlorothiazide) 25 mg PO DAILY [facility] Last Admin: 10/15/17 08:47 Dose: 25 mg Hydroxychloroquine Sulfate (Plaquenil) 200 mg PO BID [facility] Last Admin: 10/15/17 08:46 Dose: 200 mg Losartan Potassium (Cozaar) 100 mg PO DAILY [facility] Last Admin: 10/15/17 08:46 Dose: 100 mg Mirtazapine (Remeron) 15 mg PO BEDTIME [facility] Last Admin: 10/14/17 21:06 Dose: 15 mg Multivitamins/Minerals/Vitamin C (Tab-A-Chel) 1 tab PO DAILY [facility] Last Admin: 10/15/17 08:46 Dose: 1 tab Ondansetron HCl (Zofran) 4 mg IV Q4H PRN PRN Reason: Nausea/Vomiting Pantoprazole Sodium (Protonix) 40 mg PO DAILY [facility] Last Admin: 10/15/17 08:57 Dose: 40 mg Prednisone 5 mg/ Prednisone 2 (mg) 7 mg PO DAILY [facility] Last Admin: 10/15/17 08:47 Dose: 7 mg Sodium Chloride (Yazoo Nasal [place]) 0 ml LOLA Q4H PRN PRN Reason: Congestion Sodium Chloride (Saline Flush) 10 ml FLUSH ASDIRECTED PRN PRN Reason: Keep Vein Open Last Admin: 10/13/17 16:50 Dose: 10 ml Discontinued Medications Acetaminophen (Tylenol Arthritis Pain) 1,300 mg PO Q8H PRN PRN Reason: Pain Acetaminophen (Tylenol Extra Strength) 1,000 mg PO TID [facility] Last Admin: 10/13/17 20:13 Dose: 1,000 mg Albuterol (Ventolin Hfa) gm INH TID PRN PRN Reason: Wheezing Fish Oil (Fish Oil) 1 gm PO BID [facility] Last Admin: 10/12/17 21:07 Dose: Not Given HCTZ/Losartan Potassium (Hyzaar 100-25 Mg) 1 tab PO DAILY [facility] Last Admin: 10/13/17 10:31 Dose: Not Given Ibuprofen (Motrin) 600 mg PO Q6H PRN PRN Reason: Pain (mild 1-3) Ketorolac Tromethamine (Toradol) 30 mg IM ONETIME ONE Stop: 10/12/17 10:30 Last Admin: 10/12/17 10:48 Dose: 30 mg Morphine Sulfate (Morphine) 2 mg IVPUSH Q2H PRN PRN Reason: Pain (severe 7-10) Last Admin: 10/14/17 07:28 Dose: 2 mg Fluticasone/Vilanterol [Breo Ellipta] 200-25mcg Inh 1 inh INH DAILY [facility] Prednisone (Prednisone) 7 mg PO DAILY [facility] Last Admin: 10/13/17 08:56 Dose: 7 mg Tramadol HCl (Ultram) 50 mg PO QID [facility] Last Admin: 10/12/17 20:58 Dose: 50 mg Tramadol HCl (Ultram) 50 mg PO Q6H [facility] Last Admin: 10/14/17 07:30 Dose: 50 mg Tuberculin PPD (Aplisol) 5 unit IDERM ONETIME ONE Stop: 10/15/17 09:01 Last Admin: 10/15/17 08:44 Dose: 5 unit
== END 2017-10-15 11:25 | DRG 552 ==
LOC: FB.ED 10:15 → FB.MS 12:58 → OBSVTOIN 16:10
PROVIDERS: ADMIT Family Medicine; ATTEND Family Medicine
DX: S32.020A Wedge compression fracture of second lumbar vertebra, initial encounter for closed fracture (principal); N39.0 Urinary tract infection, site not specified; Z51.5 Encounter for palliative care; Z66 Do not resuscitate; M54.5 Low back pain; I10 Essential (primary) hypertension; I48.91 Unspecified atrial fibrillation; M06.9 Rheumatoid arthritis, unspecified; E66.9 Obesity, unspecified; Z68.34 Body mass index [BMI] 34.0-34.9, adult; M19.90 Unspecified osteoarthritis, unspecified site; Z87.01 Personal history of pneumonia (recurrent); H54.7 Unspecified visual loss; Z88.8 Allergy status to other drugs, medicaments and biological substances; Z79.82 Long term (current) use of aspirin; Z79.52 Long term (current) use of systemic steroids
CPT/HCPCS: 72131; 81001; 86580; 87086; 87088; 87186; 93005; 96372; 97165-GO; 97530-GO; 99284; A9270-GY; J1650; J1885; J2270; J7050

== ENCOUNTER 2018-05-26 06:00 | Emergency (ER) | payer MEDICARE, MEDICAID ==
[2018-05-26] MEDS ORDERED: Albuterol/Ipratropium 3.0-0.5 MG/3 ML Neb Soln NEB ONE (06:12)
--- NOTE | 2018-05-26 06:13 | EDM.PDOC ---
ED HPI GENERAL MEDICAL PROBLEM - General Stated Complaint: DIFFICULTY BREATHING Time Seen by Provider: 05/26/18 06:00 Source of Information: Reports: Patient, EMS, Family History Limitations: Reports: Respiratory Distress - History of Present Illness INITIAL COMMENTS - FREE TEXT/NARRATIVE: 88 y.o.w.f with COPD, CHF and a fib, came by EMS from the care home o te ED due to SOB and cough. No F/C no N/V no cp, no trauma. Pt feel better in sitting position BP 154/89 RR 20 Pulse ox 93% on RA on 2 liters O2 Pulse 99 Temp 36.7 Onset Date: 05/25/18 Onset Time: 13:00 Duration: Hour(s):, Getting Worse, Intermittent Location: Reports: Chest Quality: Reports: Dull, Same as Previous Episode Severity: Mild Improves with: Reports: Medication, Rest Worsens with: Reports: Movement Context: Reports: Other Associated Symptoms: Reports: Cough, Shortness of Breath generalized Pain Score (Numeric/FACES): 4 - Related Data Allergies Allergy/AdvReac Type Severity Reaction Status Date / Time gabapentin [From Neurontin] Allergy Cannot Verified 10/12/17 10:58 Remember avalox Allergy Cannot Uncoded 10/12/17 13:02 Remember Home Meds: Home Meds Calcium Carbonate/Vitamin D3 [Calcium 600 + Vit D 400] 1 tab PO BID 05/04/13 [ History] Multivitamin [Daily Multiple Vitamin] 1 tab PO DAILY 05/04/13 [History] predniSONE [Prednisone] 5 mg PO DAILY 05/04/13 [History] Carvedilol 6.25 mg PO BID 01/21/15 [History] Mirtazapine [Remeron] 22.5 mg PO BEDTIME 03/03/16 [History] Cholecalciferol (Vitamin D3) [Vitamin D3] 2,000 unit PO DAILY 12/29/16 [History] Aspirin 81 mg PO DAILY 10/12/17 [History] Carboxymethylcellulos/Glycerin [Refresh Optive] 2 drop EYEBOTH TID 10/12/17 [ History] Cyclobenzaprine [Flexeril] 5 mg PO BID PRN 10/12/17 [History] Fluticasone/Vilanterol [Breo Ellipta 200-25 Mcg INH] 1 inh INH DAILY 10/12/17 [ History] Furosemide 20 mg PO DAILY 10/12/17 [History] Losartan/Hydrochlorothiazide [Losartan-HCTZ 100-25 MG] 1 tab PO DAILY 10/12/17 [ History] Omeprazole 20 mg PO DAILY 10/12/17 [History] Sodium Chloride [[place]] 0.1 ml LOLA Q4H PRN 10/12/17 [History] Acetaminophen 1,000 mg PO DAILY 01/04/18 [History] Acetaminophen [Mapap] 1,000 mg PO DAILY PRN 01/04/18 [History] Albuterol/Ipratropium [DuoNeb 3.0-0.5 MG/3 ML] 3 ml .XX BID PRN #1 box 01/04/18 [Rx] Diclofenac Sodium [Voltaren] 100 gm TP QID PRN 01/04/18 [History] Loperamide HCl [Imodium A-D] 2 mg PO TID PRN 01/04/18 [History] Magnesium Hydroxide [Milk of Magnesia] 30 ml PO DAILY PRN 01/04/18 [History] Ondansetron HCl [Zofran] 4 mg PO Q8H PRN 01/04/18 [History] guaiFENesin 200 mg PO Q4H PRN 01/04/18 [History] traMADol [Ultram] 50 mg PO TID PRN 01/04/18 [History] Abatacept [Orencia] 125 mg SQ WEEKLY 05/26/18 [History] Past Medical History HEENT History: Reports: Impaired Vision Other HEENT History: wears dentures Cardiovascular History: Reports: Afib, Hypertension Other Cardiovascular History: BROKEN HEART SYNDROME, ATRIAL FIB Respiratory History: Reports: Pneumonia, Recurrent Other Respiratory History: uses inhaler at hs Gastrointestinal History: Reports: Cholelithiasis, Diverticulosis Genitourinary History: Reports: None Other Genitourinary History: the dr says my kidneys are not working very well 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: HYSTERECTOMY Musculoskeletal History: Reports: Arthritis, RA, Other (See Below) Other Musculoskeletal History: both shoulders have diminished movement pt thinks she has torn rotator cuffs uses a walker Neurological History: Reports: None Psychiatric History: Reports: Depression Endocrine/Metabolic History: Reports: Obesity/BMI 30+ Dermatologic History: Reports: None - Infectious Disease History Infectious Disease History: Reports: Shingles Other Infectious Disease History: about 2 weeks ago had a bout of shingles had the shingles vaccine in the past - Past Surgical History GI Surgical History: Reports: Cholecystectomy Social & Family History - Family History Family Medical History: Unobtainable - Caffeine Use Caffeine Use: Reports: Coffee Caffeine Use Comment: 1 cup per day - Living Situation & Occupation Living situation: Reports: , Alone Occupation: Retired ED ROS GENERAL - Review of Systems Review Of Systems: See Below Constitutional: Reports: Weakness HEENT: Reports: No Symptoms Respiratory: Reports: Shortness of Breath, Cough Cardiovascular: Reports: No Symptoms Endocrine: Reports: No Symptoms GI/Abdominal: Reports: No Symptoms : Reports: No Symptoms Musculoskeletal: Reports: No Symptoms Skin: Reports: No Symptoms Neurological: Reports: No Symptoms Psychiatric: Reports: No Symptoms Hematologic/Lymphatic: Reports: No Symptoms Immunologic: Reports: No Symptoms ED EXAM, GENERAL - Physical Exam Exam: See Below Exam Limited By: Respiratory Distress General Appearance: Alert, WD/WN, Obese Eye Exam: Bilateral Eye: Normal Inspection Ears: Normal External Exam Ear Exam: Bilateral Ear: Auricle Normal Nose: Normal Inspection, Normal Mucosa, No Blood Throat/Mouth: Normal Lips, Normal Voice, No Airway Compromise Head: Atraumatic, Normocephalic Neck: Normal Inspection, Supple, Non-Tender, Full Range of Motion Respiratory/Chest: Respiratory Distress, Decreased Breath Sounds, Rhonchi, Wheezing Cardiovascular: Normal Peripheral Pulses, Regular Rate, Rhythm, No Edema Peripheral Pulses: 1+: Brachial (L) GI/Abdominal: Normal Bowel Sounds, Soft, Non-Tender, No Organomegaly, No Abnormal Bruit, No Mass, Pelvis Stable (Female) Exam: Deferred Rectal (Female) Exam: Deferred Back Exam: Normal Inspection, Full Range of Motion Extremities: Normal Inspection, Normal Range of Motion, Non-Tender, No Pedal Edema Neurological: Alert, Oriented, CN II-XII Intact, Normal Cognition Psychiatric: Normal Affect, Normal Mood Skin Exam: Warm, Dry, Intact, Normal Color, No Rash Lymphatic: No Adenopathy Course - Vital Signs Text/Narrative:: 88 y.o.w.f with COPD, CHF and a fib, came by EMS from the care home o te ED due to SOB and cough. No F/C no N/V no cp, no trauma. Pt feel better in sitting position BP 154/89 RR 20 Pulse ox 93% on RA on 2 liters O2 Pulse 99 Temp 36.7 PE: WNWD W F with CHF, COPD, A fib came to the ED due to SOB and a cough Imaging:CXR: Atelectasis RLL of lung: Official report is pending Labs: Pending Impression: COPD Tx: Duo neb, Solu Medrol Pt was signed out to Dr. De La Paz at 7 am due to shift changes Last Recorded V/S: Last Vital Signs Temp 36.8 C 05/26/18 08:35 Pulse 82 05/26/18 08:35 Resp 18 05/26/18 08:35 BP 125/72 05/26/18 08:35 Pulse Ox 100 05/26/18 08:35 - Orders/Labs/Meds Labs: Laboratory Tests 05/26/18 05/26/18 05/26/18 Range/Units 06:20 06:20 06:20 WBC 7.9 (4.5-12.0) X10-3/uL RBC 3.52 (3.23-5.20) x10(6)uL Hgb 9.3 L (11.5-15.5) g/dL Hct 29.7 L (30.0-51.3) % MCV 84.3 (80-96) fL MCH 26.5 L (27.7-33.6) pg MCHC 31.4 L (32.2-35.4) g/dL RDW 17.8 H (11.5-15.5) % Plt Count 346 (125-369) X10(3)uL MPV 8.1 (7.4-10.4) fL Neut % (Auto) 67.5 (46-82) % Lymph % (Auto) 25.0 (13-37) % [place] % (Auto) 5.9 (4-12) % Eos % (Auto) 1 (1.0-5.0) % Baso % (Auto) 0 (0-2) % Neut # (Auto) 5.3 (1.6-8.3) # Lymph # (Auto) 2.0 (0.6-5.0) # [place] # (Auto) 0.5 (0.0-1.3) # Eos # (Auto) 0.1 (0.0-0.8) # Baso # (Auto) 0.0 (0.0-0.2) # PT 9.8 (8.7-11.1) INR 1.01 (0.89-1.13) Sodium 141 (135-145) mmol/L Potassium 3.8 (3.5-5.3) mmol/L Chloride 104 (100-110) mmol/L Carbon Dioxide 31 (21-32) mmol/L BUN 35 H (7-18) mg/dL Creatinine 1.5 H (0.55-1.02) mg/dL Est Cr Clr Drug Dosing 23.78 mL/min Estimated GFR (MDRD) 33 L (>60) BUN/Creatinine Ratio 23.3 H (9-20) Glucose 88 (80-116) mg/dL Lactic Acid (0.4-2.2) mmol/L Calcium 8.4 L (8.6-10.2) mg/dL Troponin I (<0.017-0.056) ng/mL NT-Pro-B Natriuret Pep (<=450) pg/mL 05/26/18 05/26/18 05/26/18 Range/Units 06:20 07:00 07:00 WBC (4.5-12.0) X10-3/uL RBC (3.23-5.20) x10(6)uL Hgb (11.5-15.5) g/dL Hct (30.0-51.3) % MCV (80-96) fL MCH (27.7-33.6) pg MCHC (32.2-35.4) g/dL RDW (11.5-15.5) % Plt Count (125-369) X10(3)uL MPV (7.4-10.4) fL Neut % (Auto) (46-82) % Lymph % (Auto) (13-37) % [place] % (Auto) (4-12) % Eos % (Auto) (1.0-5.0) % Baso % (Auto) (0-2) % Neut # (Auto) (1.6-8.3) # Lymph # (Auto) (0.6-5.0) # [place] # (Auto) (0.0-1.3) # Eos # (Auto) (0.0-0.8) # Baso # (Auto) (0.0-0.2) # PT (8.7-11.1) INR (0.89-1.13) Sodium (135-145) mmol/L Potassium (3.5-5.3) mmol/L Chloride (100-110) mmol/L Carbon Dioxide (21-32) mmol/L BUN (7-18) mg/dL Creatinine (0.55-1.02) mg/dL Est Cr Clr Drug Dosing mL/min Estimated GFR (MDRD) (>60) BUN/Creatinine Ratio (9-20) Glucose (80-116) mg/dL Lactic Acid 1.3 (0.4-2.2) mmol/L Calcium (8.6-10.2) mg/dL Troponin I 0.028 (<0.017-0.056) ng/mL NT-Pro-B Natriuret Pep 1544 H* (<=450) pg/mL Meds: Medications Discontinued Medications Generic Name Dose Route Start Last Admin Trade Name Freq PRN Reason Stop Dose Admin Albuterol/Ipratropium 3 ml 05/26/18 06:12 05/26/18 06:40 Duoneb 3.0-0.5 Mg/3 Ml NEB 05/26/18 06:13 3 ml ONETIME ONE Administration Methylprednisolone Sodium Succinate 125 mg 05/26/18 06:14 05/26/18 06:30 Solu-Medrol IVPUSH 05/26/18 06:15 125 mg ONETIME ONE Administration Sodium Chloride 10 ml 05/26/18 06:41 05/26/18 06:30 Saline Flush FLUSH 10 ml ASDIRECTED PRN Administration Keep Vein Open Departure - Departure Time of Disposition: 20:00 Disposition: Home, Self-Care 01 Condition: Good Clinical Impression: COPD (chronic obstructive pulmonary disease) - Discharge Information Referrals: Balaji Carpenter MD [Primary Care Provider] - Forms: ED Department Discharge
[2018-05-26] MEDS ORDERED: methylPREDNISolone Sodium Succinate 125 MG/2 ML SDV IVPUSH ONE (06:14)
[2018-05-26] MEDS ORDERED: Sodium Chloride 0.9% 10 ML Syringe FLUSH PRN (06:41)
[2018-05-26 08:46] VITALS: BP 125/72
== END 2018-05-26 08:40 | disposition home or self-care (01) ==
LOC: FB.ED 06:00
DX: J44.9 Chronic obstructive pulmonary disease, unspecified (principal); I11.0 Hypertensive heart disease with heart failure; E66.9 Obesity, unspecified; I50.9 Heart failure, unspecified; Z88.8 Allergy status to other drugs, medicaments and biological substances; Z79.899 Other long term (current) drug therapy; Z79.82 Long term (current) use of aspirin
CPT/HCPCS: 36415; 71045; 80048; 83605; 83880; 84484; 85025; 85610; 94640; 96374; 99285; J2930; J7620-GY

== ENCOUNTER 2018-11-23 18:02 | Emergency (ER) | payer MEDICARE, MEDICAID ==
--- NOTE | 2018-11-23 21:01 | EDM.PDOC ---
ED HPI GENERAL MEDICAL PROBLEM - General Chief Complaint: General Stated Complaint: weakness,shortness of breath Time Seen by Provider: 11/23/18 19:30 Source of Information: Reports: Patient History Limitations: Reports: No Limitations - History of Present Illness INITIAL COMMENTS - FREE TEXT/NARRATIVE: Patient is an 88 YO WF who presented to the ED from the because of weakness, fatigue and dyspnea for 1 week. She denies having any chest pain,N/V or diaphoresis. She noticed that she is dyspneic even with mild physical activity. - Related Data Allergies Allergy/AdvReac Type Severity Reaction Status Date / Time gabapentin [From Neurontin] Allergy Cannot Verified 11/23/18 19:01 Remember avalox Allergy Cannot Uncoded 11/23/18 19:01 Remember Home Meds: Home Meds Calcium Carbonate/Vitamin D3 [Calcium 600 + Vit D 400] 1 tab PO BID 05/04/13 [ History] Multivitamin [Daily Multiple Vitamin] 1 tab PO DAILY 05/04/13 [History] predniSONE [Prednisone] 5 mg PO DAILY 05/04/13 [History] Carvedilol 6.25 mg PO BID 01/21/15 [History] Mirtazapine [Remeron] 22.5 mg PO BEDTIME 03/03/16 [History] Cholecalciferol (Vitamin D3) [Vitamin D3] 2,000 unit PO DAILY 12/29/16 [History] Aspirin 81 mg PO DAILY 10/12/17 [History] Carboxymethylcellulos/Glycerin [Refresh Optive] 2 drop EYEBOTH TID 10/12/17 [ History] Cyclobenzaprine [Flexeril] 5 mg PO BID PRN 10/12/17 [History] Fluticasone/Vilanterol [Breo Ellipta 200-25 MCG Inhalation Kit] 1 inh INH DAILY 10/12/17 [History] Furosemide 20 mg PO DAILY 10/12/17 [History] Losartan/Hydrochlorothiazide [Losartan-HCTZ 100-25 MG] 1 tab PO DAILY 10/12/17 [ History] Omeprazole 20 mg PO DAILY 10/12/17 [History] Sodium Chloride [[place]] 0.1 ml LOLA Q4H PRN 10/12/17 [History] Acetaminophen 1,000 mg PO TID 01/04/18 [History] Acetaminophen [Mapap] 1,000 mg PO DAILY PRN 01/04/18 [History] Albuterol/Ipratropium [DuoNeb 3.0-0.5 MG/3 ML] 3 ml .XX BID PRN #1 box 01/04/18 [Rx] Diclofenac Sodium [Voltaren] 100 gm TP QID PRN 01/04/18 [History] Loperamide HCl [Imodium A-D] 2 mg PO TID PRN 01/04/18 [History] Magnesium Hydroxide [Milk of Magnesia] 30 ml PO DAILY PRN 01/04/18 [History] Ondansetron HCl [Zofran] 4 mg PO Q8H PRN 01/04/18 [History] guaiFENesin 200 mg PO Q4H PRN 01/04/18 [History] Past Medical History HEENT History: Reports: Impaired Vision Other HEENT History: wears dentures Cardiovascular History: Reports: Afib, Hypertension Other Cardiovascular History: BROKEN HEART SYNDROME, ATRIAL FIB Respiratory History: Reports: Pneumonia, Recurrent Other Respiratory History: uses inhaler at hs Gastrointestinal History: Reports: Cholelithiasis, Diverticulosis Genitourinary History: Reports: None Other Genitourinary History: the dr says my kidneys are not working very well BUOY TENDER History: Reports: Other BUOY TENDER History: HYSTERECTOMY Musculoskeletal History: Reports: Arthritis, RA, Other (See Below) Other Musculoskeletal History: both shoulders have diminished movement pt thinks she has torn rotator cuffs uses a walker Neurological History: Reports: None Psychiatric History: Reports: Depression Endocrine/Metabolic History: Reports: Obesity/BMI 30+ Dermatologic History: Reports: None - Infectious Disease History Infectious Disease History: Reports: Shingles Other Infectious Disease History: about 2 weeks ago had a bout of shingles had the shingles vaccine in the past - Past Surgical History GI Surgical History: Reports: Cholecystectomy Social & Family History - Family History Family Medical History: Unobtainable - Tobacco Use Smoking Status *Q: Never Smoker Second Hand Smoke Exposure: No - Caffeine Use Caffeine Use: Reports: Coffee Caffeine Use Comment: 1 cup per day - Recreational Drug Use Recreational Drug Use: No - Living Situation & Occupation Living situation: Reports: , Alone Occupation: Retired ED ROS GENERAL - Review of Systems Review Of Systems: See Below Constitutional: Reports: No Symptoms HEENT: Reports: No Symptoms Respiratory: Reports: Shortness of Breath Cardiovascular: Reports: Dyspnea on Exertion. Denies: Chest Pain, Lightheadedness, Orthopnea Endocrine: Reports: No Symptoms GI/Abdominal: Reports: No Symptoms : Reports: No Symptoms Musculoskeletal: Reports: No Symptoms Skin: Reports: No Symptoms Neurological: Reports: No Symptoms Psychiatric: Reports: No Symptoms ED EXAM, GENERAL - Physical Exam Exam: See Below Exam Limited By: No Limitations General Appearance: Alert, No Apparent Distress Eye Exam: Bilateral Eye: PERRL Ears: Normal External Exam, Normal Canal Nose: Normal Inspection, Normal Mucosa, No Blood Throat/Mouth: Normal Inspection, Normal Lips Head: Atraumatic, Normocephalic Neck: Normal Inspection, Supple, Non-Tender, Full Range of Motion Respiratory/Chest: Chest Non-Tender, Crackles, Rhonchi, Wheezing Cardiovascular: Gallop/S3, Other (IRR) GI/Abdominal: Normal Bowel Sounds, Soft Back Exam: Normal Inspection Extremities: Pedal Edema Neurological: Alert, Oriented, CN II-XII Intact Course - Vital Signs Text/Narrative:: labs EKG reviewed with patient and family EKG-AFIB with variable rate trop [id number]-3.818 2nd trop-0.946 CXT-small pleural eff Last Recorded V/S: Last Vital Signs Temp 36.7 C 11/23/18 19:20 Pulse 85 11/23/18 19:20 Resp 18 11/23/18 19:20 BP 136/85 11/23/18 19:20 Pulse Ox 96 11/23/18 19:20 - Orders/Labs/Meds Orders: Active Orders 24 hr Category Date Time Status EKG Documentation Completion [RC] ASDIRECTED Care 11/23/18 18:48 Active UA W/MICROSCOPIC [URIN] Stat Lab 11/23/18 18:47 Ordered EKG 12 Lead [EK] Routine Ther 11/23/18 18:47 Ordered Labs: Laboratory Tests 11/23/18 11/23/18 Range/Units 16:48 19:45 Troponin I 0.818 H* 0.946 H* (<0.017-0.056) ng/mL Departure - Departure Time of Disposition: 21:00 Disposition: DC/Tfer to Acute Hospital 02 Condition: Good Clinical Impression: CHF, Congestive heart failure, Elevated troponin - Discharge Information *PRESCRIPTION DRUG MONITORING PROGRAM REVIEWED*: No *COPY OF PRESCRIPTION DRUG MONITORING REPORT IN PATIENT AVIS: No Referrals: Balaji Carpenter MD [Primary Care Provider] - - My Orders Last 24 Hours: My Active Orders 11/23/18 18:47 UA W/MICROSCOPIC [URIN] Stat EKG 12 Lead [EK] Routine 11/23/18 18:48 EKG Documentation Completion [RC] ASDIRECTED - Assessment/Plan Last 24 Hours: My Active Orders 11/23/18 18:47 UA W/MICROSCOPIC [URIN] Stat EKG 12 Lead [EK] Routine 11/23/18 18:48 EKG Documentation Completion [RC] ASDIRECTED
[2018-11-24 03:34] VITALS: BP 139/94; PULSE 82
== END 2018-11-23 21:25 ==
LOC: FB.ED 18:02
DX: I50.9 Heart failure, unspecified (principal); R79.89 Other specified abnormal findings of blood chemistry; I10 Essential (primary) hypertension; E66.9 Obesity, unspecified; Z88.1 Allergy status to other antibiotic agents; Z88.8 Allergy status to other drugs, medicaments and biological substances; Z79.82 Long term (current) use of aspirin
CPT/HCPCS: 36415; 84484; 93005; 99285-25